=== PATIENT | female | born 1960 | race Caucasian/White ===

== ENCOUNTER 2023-08-29 08:24 | Outpatient (AMB) | payer MEDICARE, SELFPAY ==
--- NOTE | 2023-08-29 08:26 | A.OFFVIS_ITS ---
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 [place] arthritis, chronic pain syndrome, failed back syndrome, fibromyalgia, anxiety and depression presents today for initial evaluation of acute on chronic low back pain. Denies any recent trauma, injury or falls. Back pain is axial and also radiates into her right buttock and into right posterior thigh and left anterior thigh with intermittent numbness and tingling in her bilateral lower extremities. Patient also presents with moderate midline tenderness in her lower thoracic spine. Denies any bladder or bowel dysfunction or saddle anesthesia. Patient underwent injections in the past, including hip injections at [facility] and [facility] with no pain relief. Her pain increases with prolonged walking, sitting, standing, changing positions , bending activities, lifting, or climbing stairs and cold weather changes. Pain affects her daily activities, functioning, sleep, social activities, mood and quality of life. 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 She is has tried multiple OTC medications and topical applications and currently takes Tramadol prescribed by her PCP but has noted that Percocet in the past has been the most helpful. Patient was referred to Physical Therapy but was unable to proceed due to high out of pocket copays as well as significant low back pain limiting her participation in home exercise program as well. Location Lower back radiates down bilateral legs Duration Chronic back pain, worsening since 07/11/23 Characteristics of symptom or complaint Aching, burning, numbness, heavy, heaviness, radiating, sore, stabbing Aggravating or associated factors lumbar ROM, weather, walking (3 min), standing (3-5 min), sitting (20 min) Relieving factors Heat, Tylenol, NSAIDs, topical cream, lidocaine patch, Tramadol, pregabalin Treatment PT- years ago, injections- did not help, Percocet was most helpful [facility] Medical History (Updated 08/29/23 @ 21:48 by ARSENIO Ghosh) Fibromyalgia Hypertension Sleep disturbance Major depression Hypercholesterolemia Herpes Failed back syndrome of lumbar spine Degeneration of lumbar intervertebral disc Chronic pain Anxiety Surgical History (Updated 08/29/23 @ 08:52 by Shantel Guerrero) History of lumbar fusion History of cholecystectomy Hx of fusion of cervical spine Social History Alcohol intake: current Alcohol intake frequency: holidays/special occasions only Patient Tobacco Use Status: Former Tobacco user Review of Systems Const All systems reviewed & are unremarkable except as noted in HPI and below Physical Exam Vital Signs: Last Vital Signs Pulse 80 08/29/23 08:32 BP 159/68 H 08/29/23 08:32 Pulse Ox 99 08/29/23 08:32 Oxygen Delivery Method Room Air 08/29/23 08:32 BMI result Body Mass Index 33.3 General: Appears afebrile. Alert and oriented. Mood and affect appropriate. Follows and participates in conversation appropriately. Respiratory effort is unlabored. No cough. Able to transition from sit to stand unassisted. Ambulates with bilaterally normal heel strike and toe off. Back/Spine/Pelvis Other: Limited lumbar ROM due to pain, worse with extension and facet loading bilaterally. Mildly antalgic gait, no limping. Demonstrates 5/5 strength of quadriceps bilaterally as well as flexion/dorsiflexion of bilateral feet against resistance. 2+ pedal pulses bilaterally. Supine straight leg rise with dorsiflexion negative bilaterally. Diminished patellar and achilles reflexes bilaterally. Garrison?s and Stinchfield tests are negative bilaterally. Piriformis test is negative. No groin pain with I/E hip rotations. Valsalva maneuver negative. Cervical Spine: cervical ROM normal, Cervical spine scars present, No Cervical spine tenderness and No step off deformity Thoracic/Lumbar Spine: thoracic and lumbar spine normal to inspection, Thoracic/lumbar spine scar(s), Lasegue's sign negative, straight leg raise negative bilaterally, pain with thoraco-lumbar ROM, paraspinal muscle tenderness, thoraco-lumbar ROM limited, thoracic spinal tenderness (Moderate pain with palpation over lower thoracic area) and lumbar spinal tenderness at L4 and at L5 Pelvis: no buttock tenderness Sacroiliac joints: bilaterally nontender Results Reviewed Results Reviewed: No imaging is available for review today. Assessment & Plan Assessment & Plan (1) Failed back syndrome: Code(s): M96.1 - Postlaminectomy syndrome, not elsewhere classified (2) Degeneration of lumbar intervertebral disc: Code(s): M51.36 - Other intervertebral disc degeneration, lumbar region (3) Midline back pain: Code(s): M54.89 - Other dorsalgia (4) Chronic pain syndrome: Code(s): G89.4 - Chronic pain syndrome (5) Fibromyalgia: Code(s): M79.7 - Fibromyalgia Plan Lumbar and thoracic spine imaging to assess degree of degenerative changes, any subluxation, listhesis, compression fractures or pars defects. Patient has moderate midline tenderness in lower thoracic spine. Denies history of osteoporosis or recent trauma/falls. Will request previous MRI reports [place] [facility] Continue muscle relaxant, Tylenol, NSAIDs prn, topical applications, heat therap y and Tramadol prescribed by her PCP. Patient reports Percocet was most effective in the past. Discussed interventional treatments for radicular symptoms and failed back syndrome, including therapeutic injections, neuromodulation with SCS or ITDD pain pump trial vs implants, PNS trial and RFA procedure. Informational pamphlets provided to patient. All questions and concerns have been answered and patient agreed with the plan. Follow up for xray results and sooner as needed. Orders: Orders XR thoracic spine 3V Today G89.4 - Chronic pain syndrome, M51.36 - Other intervertebral disc degeneration, lumbar region, M54.89 - Other dorsalgia, M96.1 - Postlaminectomy syndrome, not elsewhere classified XR lumbar spine 4V min Today G89.4 - Chronic pain syndrome, M51.36 - Other intervertebral disc degeneration, lumbar region, M54.89 - Other dorsalgia, M96.1 - Postlaminectomy syndrome, not elsewhere classified Medications: New pregabalin 75 mg PO BID 15 days 30 caps 0RF pain G89.4 - Chronic pain syndrome, M51.36 - Other intervertebral disc degeneration, lumbar region, M54.89 - Other dorsalgia, M96.1 - Postlaminectomy syndrome, not elsewhere classified Coding Level of Care Code New Pt Level 4 (81188) Diagnoses Failed back syndrome M96.1 Degeneration of lumbar intervertebral disc M51.36 Midline back pain M54.89 Chronic pain syndrome G89.4 Fibromyalgia M79.7
[2023-08-29 08:32] VITALS: BP 159/68; PULSE 80; O2SAT 99; BMI 33.3
== END 2023-08-29 09:09 | disposition home or self-care (01) ==
PROVIDERS: PCP Nurse Practitioner Family; Referring Provider Nurse Practitioner Family; Visit Provider Nurse Practitioner Family
DX: M96.1 Postlaminectomy syndrome, not elsewhere classified (principal); M51.36 Other intervertebral disc degeneration, lumbar region; M54.89 Other dorsalgia; G89.4 Chronic pain syndrome; M79.7 Fibromyalgia
CPT/HCPCS: 99204

== ENCOUNTER → 2023-08-29 08:24 | Outpatient (BNVA) | payer MEDICARE, SELFPAY | PROVIDERS: PCP Nurse Practitioner Family; Referring Provider Nurse Practitioner Family; Visit Provider Nurse Practitioner Family | DX: M51.36 Other intervertebral disc degeneration, lumbar region (principal); M96.1 Postlaminectomy syndrome, not elsewhere classified; M54.89 Other dorsalgia; G89.4 Chronic pain syndrome; M79.7 Fibromyalgia | CPT/HCPCS: 99202 ==

== ENCOUNTER 2023-09-05 08:25 | Outpatient (AMB) | payer MEDICARE, SELFPAY ==
--- NOTE | 2023-09-05 08:26 | MHC.OFFVIS ---
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 She continues to endorse low back pain with any movements, worse with bending and avoids extending it backwards due to significant exacerbation of pain. Patient also reports ongoing radicular symptoms in her right leg and occasionally into her left leg with heaviness, numbness and tingling. Reports mild increase in pregabalin has been beneficial for her pain and well tolerated. Denies any recent cough, cold, infection, fever, any significant changes in her medical history, medications or recent hospitalizations. PRIOR: Patient is a 63 years old female with prior history of multiple cervical and lumbar surgeries x4 (cervical and lumbar fusions, removal of bone spurs in lower spine, last surgery in 2017, [facility] Dr. Gaston), arthritis, chronic pain syndrome, failed back syndrome, fibromyalgia, anxiety and depression presents today for initial evaluation of acute on chronic low back pain. Denies any recent trauma, injury or falls. Back pain is axial and also radiates into her right buttock and into right posterior thigh and left anterior thigh with intermittent numbness and tingling in her bilateral lower extremities. Patient also presents with moderate midline tenderness in her lower thoracic spine. Denies any bladder or bowel dysfunction or saddle anesthesia. Patient underwent injections in the past, including hip injections at [facility] and [facility] with no pain relief. Her pain increases with prolonged walking, sitting, standing, changing positions, bending activities, lifting, or climbing stairs and cold weather changes. Pain affects her daily activities, functioning, sleep, social activities, mood and quality of life. 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 She is has tried multiple OTC medications and topical applications and currently takes Tramadol prescribed by her PCP but has noted that Percocet in the past has been the most helpful. Patient was referred to Physical Therapy but was unable to proceed due to high out of pocket copays as well as significant low back pain limiting her participation in home exercise program as well. Location Lower back radiates down bilateral legs Duration Chronic back pain, worsening since 07/11/23 Characteristics of symptom or complaint Aching, burning, numbness, heavy, heaviness, radiating, sore, stabbing Aggravating or associated factors lumbar ROM, weather, walking (3 min), standing (3-5 min), sitting (20 min) Relieving factors Heat, Tylenol, NSAIDs, topical cream, lidocaine patch, Tramadol, pregabalin Treatment PT- years ago, injections- did not help, Percocet was most helpful [facility] Medical History (Updated 09/05/23 @ 08:44 by ARSENIO Ghosh) Fibromyalgia Hypertension Sleep disturbance Major depression Hypercholesterolemia Herpes Failed back syndrome of lumbar spine Degeneration of lumbar intervertebral disc Chronic pain Anxiety Surgical History History of lumbar fusion History of cholecystectomy Hx of fusion of cervical spine Social History Alcohol intake: current Alcohol intake frequency: holidays/special occasions only Patient Tobacco Use Status: Former Tobacco user Review of Systems Const All systems reviewed & are unremarkable except as noted in HPI and below Physical Exam Vital Signs: Last Vital Signs Pulse 81 09/05/23 08:30 BP 143/68 H 09/05/23 08:30 Pulse Ox 99 09/05/23 08:30 Oxygen Delivery Method Room Air 09/05/23 08:30 BMI result Body Mass Index 33.3 General: Appears afebrile. Alert and oriented. Mood and affect appropriate. Follows and participates in conversation appropriately. Respiratory effort is unlabored. No cough. Able to transition from sit to stand unassisted. Ambulates with bilaterally normal heel strike and toe off. Back/Spine/Pelvis Other: Limited lumbar ROM due to pain, worse with extension and facet loading bilaterally as well as forward flexion and bending. Antalgic gait, no limping. Demonstrates 5/5 strength of quadriceps bilaterally as well as flexion/dorsiflexion of bilateral feet against resistance. 2+ pedal pulses bilaterally. Diminished patellar and achilles reflexes bilaterally. Garrison?s and Stinchfield tests are negative bilaterally. No groin pain with I/E hip rotations. Valsalva maneuver negative. Cervical Spine: cervical ROM normal, cervical muscular tenderness, Cervical spine scars present, No Cervical spine tenderness and No step off deformity Thoracic/Lumbar Spine: thoracic and lumbar spine normal to inspection, Thoracic/lumbar spine scar(s), Lasegue's sign positive on the right and diffuse, pain with thoraco-lumbar ROM, paraspinal muscle tenderness, thoraco-lumbar ROM limited, thoracic spinal tenderness (Moderate pain with palpation over lower thoracic area), lumbar spinal tenderness (L3-S1) and straight leg raise positive right at 50 degrees Pelvis: buttock tenderness Sacroiliac joints: bilaterally tender to palpation Results Reviewed Results Reviewed: Assessment & Plan Assessment & Plan (1) Failed back syndrome: Code(s): M96.1 - Postlaminectomy syndrome, not elsewhere classified (2) Degeneration of lumbar intervertebral disc: Code(s): M51.36 - Other intervertebral disc degeneration, lumbar region (3) Chronic pain syndrome: Code(s): G89.4 - Chronic pain syndrome (4) Anterolisthesis of lumbar spine: Code(s): M43.16 - Spondylolisthesis, lumbar region (5) Lumbar radiculopathy: Code(s): M54.16 - Radiculopathy, lumbar region Plan Lumbar and thoracic spine reports were discussed with patient. Copy of report sent to patient's PCP with recommendation for potential carotid and abdominal US to rule out calcifications in these areas. Will proceed with lumbar spine MRI to assess for neural integrity and compression and follow up on previous xray findings, including potential DISH syndrome. Patient requests MRI to be completed at [facility] as she does all her lab and imaging testing there, which is also closer to her home. She is aware to bring MRI disc with imaging so we can upload it into our EMR via radiology department. Continue muscle relaxant, Tylenol, NSAIDs prn, topical applications, heat therapy, pregabalin and Tramadol prescribed by her PCP. Reviewed interventional treatments for radicular symptoms and failed back syndrome, including therapeutic injections, neuromodulation with SCS or ITDD pain pump trial vs implants, PNS trial and RFA procedure. Patient reports epidural steroid injections were ineffective in the past. All questions and concerns have been answered and patient agreed with the plan. Follow up for MRI results and sooner as needed. Orders: Orders MR lumbar spine wo/w con Today M43.16 - Spondylolisthesis, lumbar region, M51.36 - Other intervertebral disc degeneration, lumbar region, M54.16 - Radiculopathy, lumbar region, M96.1 - Postlaminectomy syndrome, not elsewhere classified Coding Level of Care Code Est Pt Level 4 (61286) Diagnoses Failed back syndrome M96.1 Degeneration of lumbar intervertebral disc M51.36 Chronic pain syndrome G89.4 Anterolisthesis of lumbar spine M43.16 Lumbar radiculopathy M54.16
[2023-09-05 08:30] VITALS: BP 143/68; PULSE 81; O2SAT 99; BMI 33.3
== END 2023-09-05 08:54 | disposition home or self-care (01) ==
PROVIDERS: PCP Nurse Practitioner Family; Visit Provider Nurse Practitioner Family
DX: M96.1 Postlaminectomy syndrome, not elsewhere classified (principal); M51.36 Other intervertebral disc degeneration, lumbar region; G89.4 Chronic pain syndrome; M43.16 Spondylolisthesis, lumbar region; M54.16 Radiculopathy, lumbar region
CPT/HCPCS: 99214

== ENCOUNTER → 2023-09-05 08:25 | Outpatient (BNVA) | payer MEDICARE, SELFPAY | PROVIDERS: PCP Nurse Practitioner Family; Visit Provider Nurse Practitioner Family | DX: M96.1 Postlaminectomy syndrome, not elsewhere classified (principal); M51.36 Other intervertebral disc degeneration, lumbar region; M43.16 Spondylolisthesis, lumbar region; M54.16 Radiculopathy, lumbar region; G89.4 Chronic pain syndrome | CPT/HCPCS: 99212 ==

== ENCOUNTER 2023-09-19 08:35 | Outpatient (AMB) | payer MEDICARE, SELFPAY ==
--- NOTE | 2023-09-19 08:36 | A.OFFVIS_ITS ---
Intake Vital Signs 3 09/19/23 08:42 Height 5 ft 3 in Weight 185 lb BMI 32.8 BP 149/70 H Blood Pressure Location Rt brachial Position Sitting Pulse 85 Pulse Source Pulse Oximeter Pulse Oximetry (%) 96 Oxygen Delivery Method Room Air Intake Visit Reasons: MRI FOLLOW UP Intake Note: Pain today 5/10 Flight Operations Inspector Required: No Accompanied by: Self / Same As Patient Allergies gabapentin Allergy (Unknown, Verified 09/19/23 08:42) Blurry Vision tioconazole [From Monistat 1 (tioconazole)] Allergy (Unknown, Verified 09/19/23 08:42) Swelling HPI HPI Comments 2 History of Present Illness0 Details Patient presents today to discuss recent lumbar spine MRI results which she completed at [facility] on 09/13/23. Patient reports progressively worsening lower back pain with bilateral radiculopathy. She reports her walking, standing and sitting is limited and her sleep is very fragmented due to back and bilateral lateral hip. Patient reports I toss and turn all night due to pain. Reports radiation of her pain into her right anterior thigh and leg with heaviness and occasional right leg giving away. She also has to manually lift her right leg due to heaviness. She reports numbness in her left leg anterior and laterally. Her pain is rated at 5/10 with sitting for 5-7 min, after which she has to get up and adjust her position which she has been doing most of today's visit. Her pain intensified to 9-10/10 with walking or standing for 2-5 min. She continues to take tramadol, pregabalin, muscle relaxants, NSAIDs and heating pad with partial relief. Her daily functioning, mobility and sleep are significantly limited due to pain. Denies any fever, abdominal or groin pain, bladder or bowel dysfunction or saddle anesthesia. Patient reports she is having Carotid arteries US on 09/20/23 and pending PA for abdominal US to follow up on atherosclerotic calcification. She declined back injections but would like to undergo Neurosurgical evaluation and bilateral therapeutic greater trochanteric bursa injections as next steps. PRIOR: Patient presents today to discuss recent thoracic and lumbar spine xray results. She continues to endorse low back pain with any movements, worse with bending and avoids extending it backwards due to significant exacerbation of pain. Patient also reports ongoing radicular symptoms in her right leg and occasionally into her left leg with heaviness, numbness and tingling. Reports mild increase in pregabalin has been beneficial for her pain and well tolerated. Denies any recent cough, cold, infection, fever, any significant changes in her medical history, medications or recent hospitalizations. PRIOR: Patient is a 63 years old female with prior history of multiple cervical and lumbar surgeries x4 (cervical and lumbar fusions, removal of bone spurs in lower spine, last surgery in 2017, [facility] [place] Gaston), arthritis, chronic pain syndrome, failed back syndrome, fibromyalgia, anxiety and depression presents today for initial evaluation of acute on chronic low back pain. Denies any recent trauma, injury or falls. Back pain is axial and also radiates into her right buttock and into right posterior thigh and left anterior thigh with intermittent numbness and tingling in her bilateral lower extremities. Patient also presents with moderate midline tenderness in her lower thoracic spine. Denies any bladder or bowel dysfunction or saddle anesthesia. Patient underwent injections in the past, including hip injections at [facility] and [facility] with no pain relief. Her pain increases with prolonged walking, sitting, standing, changing positions, bending activities, lifting, or climbing stairs and cold weather changes. Pain affects her daily activities, functioning, sleep, social activities, mood and quality of life. 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 She is has tried multiple OTC medications and topical applications and currently takes Tramadol prescribed by her PCP but has noted that Percocet in the past has been the most helpful. Patient was referred to Physical Therapy but was unable to proceed due to high out of pocket copays as well as significant low back pain limiting her participation in home exercise program as well. Location Lower back radiates down bilateral legs Duration Chronic back pain, worsening since 07/11/23 Characteristics of symptom or complaint Aching, burning, numbness, heavy, heaviness, radiating, sore, stabbing Aggravating or associated factors lumbar ROM, weather, walking (3 min), standing (3-5 min), sitting (20 min) Relieving factors Heat, Tylenol, NSAIDs, topical cream, lidocaine patch, Tramadol, pregabalin Treatment PT- years ago, injections- did not help, Percocet was most helpful [facility] Medical History Fibromyalgia Hypertension Sleep disturbance Major depression Hypercholesterolemia Herpes Failed back syndrome of lumbar spine Degeneration of lumbar intervertebral disc Chronic pain Anxiety Surgical History History of lumbar fusion History of cholecystectomy Hx of fusion of cervical spine Social History Alcohol intake: current Alcohol intake frequency: holidays/special occasions only Patient Tobacco Use Status: Former Tobacco user Review of Systems Const All systems reviewed & are unremarkable except as noted in HPI and below Physical Exam Vital Signs: Last Vital Signs Pulse 85 09/19/23 08:42 BP 149/70 H 09/19/23 08:42 Pulse Ox 96 09/19/23 08:42 Oxygen Delivery Method Room Air 09/19/23 08:42 BMI result Body Mass Index 32.8 General: Appears afebrile. Alert and oriented. Mood and affect appropriate. Follows and participates in conversation appropriately. Respiratory effort is unlabored. No cough. Able to transition from sit to stand unassisted. Ambulates with bilaterally normal heel strike and toe off, reports unsteadiness on the right. Back/Spine/Pelvis Other: Limited lumbar ROM due to pain, worse with extension and facet loading bilaterally as well as forward flexion and bending. Antalgic gait, no limping. Demonstrates 5/5 left and 4/5 right strength of quadriceps bilaterally as well as flexion/dorsiflexion of bilateral feet against resistance. 2+ pedal pulses bilaterally. Diminished patellar and achilles reflexes bilaterally. Mild sensation loss right lower extremity anteriorly and decreased sensation left anterior thigh. Garrison?s and Stinchfield tests reproduce lateral hip pain. No groin pain with I/E hip rotations. Moderate TTP to bilateral GTB areas. Valsalva maneuver negative. Cervical Spine: cervical ROM normal, cervical muscular tenderness, Cervical spine scars present, No Cervical spine tenderness and No step off deformity Thoracic/Lumbar Spine: thoracic and lumbar spine normal to inspection, Thoracic/lumbar spine scar(s), Lasegue's sign positive on the right and diffuse, pain with thoraco-lumbar ROM, paraspinal muscle tenderness, thoraco-lumbar ROM limited, thoracic spinal tenderness (Moderate pain with palpation over lower thoracic area), lumbar spinal tenderness (L3-S1) and straight leg raise positive right at 50 degrees Pelvis: buttock tenderness Sacroiliac joints: bilaterally tender to palpation Results Reviewed Results Reviewed: Lumbar spine MRI at [facility] 09/16/23 Assessment & Plan Assessment & Plan (1) Greater trochanteric bursitis of both hips: Code(s): M70.61 - Trochanteric bursitis, right hip; M70.62 - Trochanteric bursitis, left hip (2) Lumbar radiculopathy: Code(s): M54.16 - Radiculopathy, lumbar region (3) Anterolisthesis of lumbar spine: Code(s): M43.16 - Spondylolisthesis, lumbar region (4) Chronic pain syndrome: Code(s): G89.4 - Chronic pain syndrome (5) Degeneration of lumbar intervertebral disc: Code(s): M51.36 - Other intervertebral disc degeneration, lumbar region (6) Failed back syndrome: Code(s): M96.1 - Postlaminectomy syndrome, not elsewhere classified (7) Lumbar spinal stenosis: Code(s): M48.061 - Spinal stenosis, lumbar region without neurogenic claudication Plan Referral to our [facility] for surgical evaluation of lumbar spinal stenosis with spondylolisthesis. Lumbar spine results reviewed with patient today. Schedule Bilateral Therapeutic GTB steroid injections with local and US guidance. Expectations, risks and benefits were reviewed. Patient is aware she will be contacted to schedule this procedure. Patient is aware to call if pain worsens or if she develops any red flag symptoms to seek emergency care. Patient denies any cauda equina syndrome symptoms at this time. All questions were answered and the patient is in agreement of plan. Follow-up after injections/Neurosurgical eval and sooner as needed. Orders: Referrals 2 Neurosurgery Referral M43.16 - Spondylolisthesis, lumbar region, M48.061 - Spinal stenosis, lumbar region without neurogenic claudication Coding Level of Care Code Est Pt Level 4 (29722) Diagnoses Greater trochanteric bursitis of both hips M70.61; M70.62 Lumbar radiculopathy M54.16 Anterolisthesis of lumbar spine M43.16 Chronic pain syndrome G89.4 Degeneration of lumbar intervertebral disc M51.36 Failed back syndrome M96.1 Lumbar spinal stenosis M48.061
[2023-09-19 08:42] VITALS: BP 149/70; PULSE 85; O2SAT 96; BMI 32.8
== END 2023-09-19 09:00 | disposition home or self-care (01) ==
PROVIDERS: PCP Nurse Practitioner Family; Visit Provider Nurse Practitioner Family
DX: M70.61 Trochanteric bursitis, right hip (principal); M70.62 Trochanteric bursitis, left hip; M54.16 Radiculopathy, lumbar region; M43.16 Spondylolisthesis, lumbar region
CPT/HCPCS: 99214

== ENCOUNTER → 2023-09-19 08:35 | Outpatient (BNVA) | payer MEDICARE, SELFPAY | PROVIDERS: PCP Nurse Practitioner Family; Visit Provider Nurse Practitioner Family | DX: M48.061 Spinal stenosis, lumbar region without neurogenic claudication (principal); M43.16 Spondylolisthesis, lumbar region; M70.61 Trochanteric bursitis, right hip; M70.62 Trochanteric bursitis, left hip; M54.16 Radiculopathy, lumbar region; M51.36 Other intervertebral disc degeneration, lumbar region; G89.4 Chronic pain syndrome; M96.1 Postlaminectomy syndrome, not elsewhere classified | CPT/HCPCS: 99212 ==

== ENCOUNTER 2023-10-04 08:44 | Outpatient (REF) | payer MEDICARE, SELFPAY ==
--- NOTE | ~2023-10-04 | XR_ITS ---
EXAMINATION: XR LUMBOSACRAL SPINE WITH OBLIQUES CLINICAL INFORMATION: Spinal stenosis, lumbar, without neurogenic claudication. COMPARISON: None available. TECHNIQUE: Standing AP and lateral views with flexion and extension views for a total of 4 views. FINDINGS: Postsurgical changes with orthopedic hardware including pedicle screws and connecting rods from L4 through S1 with interbody devices also noted at these disc levels. Hardware intact without hardware fracture or surrounding lucency. There is grade 1 anterolisthesis of L3 on L4 with degenerative disc changes also present manifest by endplate osteophytes and disc space narrowing. There is additional multilevel degenerative disc disease manifested by endplate osteophytes and varying degrees of disc space narrowing throughout the visualized dorsal spine and remaining lumbar spine from T12-L1 through L3-L4. No fracture. Arterial calcification noted. No abnormal translation with flexion and extension. XR/XR lumbar spine 4V min IMPRESSION: 1. Postsurgical changes of lumbar spine without evidence of hardware failure. 2. Multilevel spondylosis of the lumbar spine.
== END 2023-10-04 08:45 | disposition home or self-care (01) ==
LOC: HO.HOSX 08:44
PROVIDERS: PCP Nurse Practitioner Family; Visit Provider Physician Assistant
DX: M48.061 Spinal stenosis, lumbar region without neurogenic claudication (principal)
CPT/HCPCS: 72110; 99202

== ENCOUNTER 2023-10-04 08:44 | Outpatient (AMB) | payer MEDICARE, SELFPAY ==
--- NOTE | 2023-10-04 08:52 | HO.SPINEOV ---
Intake Visit Reasons: spinal stenosis,lumbar region Intake Note: Ms. Xiao is here today c/o right sided low back pain that radiates down the right leg. Tomography Technologist Required: No Allergies gabapentin Allergy (Unknown, Verified 10/04/23 08:53) Blurry Vision tioconazole [From Monistat 1 (tioconazole)] Allergy (Unknown, Verified 09/19/23 08:42) Swelling Assessment & Plan Assessment & Plan (1) Lumbar spinal stenosis: Code(s): M48.061 - Spinal stenosis, lumbar region without neurogenic claudication Category: Medical Plan Dear Jade Thank you for referring Mrs Xiao to our office today. She has a 63-year-old female who has a history of previous ALIF L4-s1 done by Dr Gatson many years ago, as well as a simple lumbar decompression done by Dr. Kapoor more than 20 years ago, who presents for evaluation of a progressively worsening midline low back pain which has been radiating down her right leg. She specifically states that it goes down the back of her right leg but she was somewhat limited on the details she could provide me. Overall she just says that her walking is poor and she has to sit down in order to continue walking. Simple things like taking a walk in the grocery store, and other short distances give her quite a significant amount of pain in her back and her right leg. She has been through multiple pain management center to try to manage this, and has undergone physical therapy and too many cortisone injections that she can not even recall how many. She has no interest in doing any more of those. She takes tramadol and Lyrica and meloxicam to help with the pain. It helps but only to a certain degree. She is here today for evaluation of an MRI showing severe stenosis at L3-4 with adjacent segment disease as well as moderate to severe stenosis at L2-3. PMH: History of hypertension, high cholesterol, anxiety, GERD, to previous anterior cervical diskectomies and fusions, anterior lumbar interbody fusion as above, cholecystectomy, . She denies any history of heart attacks, strokes, liver disease, major abdominal surgeries, cancer, bleeding disorders, blood clots, kidney issues etc.. She did state that she was told she has calcifications in her aorta that were seen on an x-ray. Despite a strong history of smoking, she tells me that she has no shortness of breath and has never been diagnosed with emphysema. Social hx: She quit smoking a few weeks back, has been weaning herself off a nicotine patch since that time. Otherwise she has been a lifelong smoker. She used to smoke up to 2-3 packs a day. Medications: Tramadol, Lyrica, lisinopril, vitamin-D, vitamin-B, biotin, baby aspirin, meloxicam, tizanidine, omeprazole Allergies: Gabapentin gives her blurry vision Physical exam: Awake alert oriented no acute distress, she has full strength of bilateral upper extremities, some mild weakness of her iliopsoas but distal lower extremity strength in quadriceps and tibialis/gastrocnemius are full strength. She has no sensory loss. She has normal reflexes in the upper extremities, 3+ patellar reflexes, no clonus in the ankles, no Diego's sign. She has 2 anterior cervical diskectomy scars in the front of her neck which are well healed. These are bilateral. She has abdomen obese, nondistended nontender, she has a midline scar from her anterior lumbar interbody fusion which is well healed as well as a scar in her lower abdomen which is well healed. Both of her feet seem to have no discolorations, she had 2+ pulses on the right and 1+ pulses on the left. Imaging review: Lumbar MRI done at [facility] shows evidence of previous fusion L4-S1 with solid fusion segments, she has a grade 1 spondylolisthesis at L3-4 with severe stenosis at this level with bilateral neural foraminal stenosis, she has moderate to severe stenosis secondary to disc bulging at L2-3. Impression: 63-year-old female with a history of 2 previous lumbar surgeries, 1 was a simple decompression done many many years ago, the other 1 was an L4-S1 anterior lumbar interbody fusion done at [facility] by Dr. Gaston maybe 10 years ago or so, presents now with adjacent segment disease at L3-4 with spondylolisthesis grade 1 and severe stenosis, with moderate to severe stenosis at L2-3 as well. This is typically a situation where Dr. Jett would extend the fusion up to L3-4, possibly L2-3. I did review with her both the oblique lumbar interbody fusion and trans Kambin approaches which are the 2 most common he would typically use. Before I commit her to any surgery, I would like to know a little bit more about the L3-4 segment and how unstable it is so I am going to send her for flexion-extension x-rays. Also, would like to get a look at her bone quality with the x-rays. I suspect given her history of smoking, being postmenopausal that she is going to have osteopenia if not osteoporosis. Typically we would lean in the direction of an oblique lumbar interbody fusion in this circumstance because the size of the cage would get better support. Once I have a chance to review everything with Dr. Jett I will give the patient a call back and review pertinent risks, benefits etc... Thank you for allowing us to care for your patient. The total time spent with this visit with this patient was 45 minutes reviewing history, physical exam, lumbar imaging review, and implementation of treatment plan or further diagnostic testing Esequiel Jett MD,PhD [facility] Orders: Orders XR lumbar spine 4V min Today M48.061 - Spinal stenosis, lumbar region without neurogenic claudication Coding Level of Care Code New Pt Level 4 (35717) Diagnoses Lumbar spinal stenosis M48.061
== END 2023-10-04 11:33 | disposition home or self-care (01) ==
PROVIDERS: PCP Nurse Practitioner Family; Referring Provider Nurse Practitioner Family; Visit Provider Physician Assistant
DX: M48.061 Spinal stenosis, lumbar region without neurogenic claudication (principal)
CPT/HCPCS: 99204

== ENCOUNTER 2023-10-11 09:28 | Outpatient (AMB) | payer MEDICARE, SELFPAY ==
--- NOTE | 2023-10-11 09:34 | MHC.OFFVIS ---
Vital Signs 10/11/23 09:36 Height 5 ft 3 in Weight 198 lb BMI 35.1 BP 138/62 Blood Pressure Location Lt brachial Position Sitting Respiration 14 Pulse 88 Pulse Source Pulse Oximeter Pulse Oximetry (%) 95 Oxygen Delivery Method Room Air Intake Visit Reasons: BILATERAL GTB INJECTIONS UNDER ULTRASOUND Allergies gabapentin Allergy (Unknown, Verified 10/11/23 09:37) Blurry Vision tioconazole [From Monistat 1 (tioconazole)] Allergy (Unknown, Verified 10/11/23 09:37) Swelling Medication List - Last Reconciled 10/11/23 by Sharlene Tidwell LPN amlodipine 2.5 mg PO DAILY atorvastatin 10 mg PO DAILY lisinopril-hydrochlorothiazide 20-12.5 mg 1 tab PO DAILY meloxicam 7.5 mg PO DAILY omeprazole 40 mg PO DAILY pregabalin 75 mg PO BID 15 days tizanidine 2 mg PO BID tramadol ER mg PO venlafaxine 37.5 mg PO DAILY HPI HPI BILATERAL GTB INJECTIONS UNDER ULTRASOUND: Details: 63-year-old female who presents today to the office for a bilateral GTB injection, US guided. Denies any recent cough, cold, infection, fever or other significant changes in medical history since last office visit. She reports the worsening of the back pain. She has difficulty standing and walking. She has to sit or rest after walking a short distance. She had back fusion surgery three times in the past, and the last was done in 2016. She will undergo her fourth?fusion surgery in December 2023. [facility] Medical History Fibromyalgia Hypertension Sleep disturbance Major depression Hypercholesterolemia Herpes Failed back syndrome of lumbar spine Degeneration of lumbar intervertebral disc Chronic pain Anxiety Surgical History History of lumbar fusion History of cholecystectomy Hx of fusion of cervical spine Social History Alcohol intake: current Alcohol intake frequency: holidays/special occasions only Patient Tobacco Use Status: Former Tobacco user Physical Exam Vital Signs: Last Vital Signs Pulse 88 10/11/23 09:36 Resp 14 10/11/23 09:36 BP 138/62 10/11/23 09:36 Pulse Ox 95 10/11/23 09:36 Oxygen Delivery Method Room Air 10/11/23 09:36 BMI result Body Mass Index 35.1 On exam today: Appears afebrile. Alert and oriented. Mood and affect appropriate. Follows and participates in conversation appropriately. Respiratory effort is unlabored. Able to transition from sit to stand unassisted. Ambulates with bilaterally normal heel strike and toe off. Able to stand and walk on toes and heels. Office Procedures Joint Injection/Drain Joint Injection/Drain Details: Greater Trochanteric Bursa Injection, bilateral, ultrasound guided. After informed written consent was obtained, the patient was placed in the lateral position. Pre-procedure oxygen saturation, heart rate, and blood pressure were recorded. The skin was prepped with Chloroprep, and draped in a sterile fashion. With the use of ultrasound, the greater trochanter was identified. A 21-gauge 80 mm needle was then advanced toward the trochanteric bursa under ultrasound visualization. Once in position, and after negative aspiration, 40 mg of Kenalog mixed with 0.5% ropivacaine (3mL total) was injected on each side. There was no evidence of paresthesia throughout needle placement. The needle was withdrawn. The patient tolerated the procedure well and there was no evidence of procedural complications. The patient was observed in the procedure room for 20 minutes, vitals were stable, and discharged in stable condition. An ultrasound image of the injection was taken and stored in the permanent record. Coding 06859 - Glenohumeral/Tronchanteric Bursa/Intraarticular (bilateral, ultrasound guided) Procedure code (CPT) selection complete Results Reviewed Results Reviewed: 09/13/2023: MR LUMBAR SPINE W+WO CON Assessment & Plan Assessment & Plan (1) Greater trochanteric bursitis of both hips: Code(s): M70.61 - Trochanteric bursitis, right hip; M70.62 - Trochanteric bursitis, left hip Category: Medical (2) Lumbar spinal stenosis: Code(s): M48.061 - Spinal stenosis, lumbar region without neurogenic claudication Category: Medical Plan I reviewed the patient's MRI report at her request regarding her spinal stenosis and her upcoming surgery in December. I encourage her to follow up with her spine surgeon to address questions regarding the surgery. I agree that her severe spinal stenosis at L3?4 and L2?3 needs to be surgically addressed. If she has residual pain after the surgery, we can address it with other pain management strategies. Patient is status post Greater Trochanteric Bursa Injection, bilateral, ultrasound guided. Patient tolerated procedure well and was discharged home in stable condition with discharge instructions. All questions were answered. Follow-up as needed. Coding Level of Care Code Est Pt Level 3 (49745) Diagnoses Greater trochanteric bursitis of both hips M70.61; M70.62 Lumbar spinal stenosis M48.061 CPT Codes Coding - Joint 7: 58622 - Glenohumeral/Tronchanteric Bursa/Intraarticular ([id number])
[2023-10-11 09:36] VITALS: BP 138/62; PULSE 88; RESP 14; O2SAT 95; BMI 35.1
== END 2023-10-11 10:07 | disposition home or self-care (01) ==
PROVIDERS: PCP Nurse Practitioner Family; Visit Provider Internal Medicine
DX: M70.61 Trochanteric bursitis, right hip (principal); M70.62 Trochanteric bursitis, left hip; M48.061 Spinal stenosis, lumbar region without neurogenic claudication
CPT/HCPCS: 20611

== ENCOUNTER → 2023-10-11 09:28 | Outpatient (BNVA) | payer MEDICARE, SELFPAY | PROVIDERS: PCP Nurse Practitioner Family; Visit Provider Internal Medicine | DX: M70.61 Trochanteric bursitis, right hip (principal); M70.62 Trochanteric bursitis, left hip; M48.061 Spinal stenosis, lumbar region without neurogenic claudication | CPT/HCPCS: 20611; J2795; J3301 ==

== ENCOUNTER 2023-12-20 08:47 | Outpatient (REF) | payer MEDICARE, SELFPAY ==
[2023-12-27 00:34] LABS: Cotinine <2 ng/mL; Nicotine <2 ng/mL
== END 2023-12-20 08:48 | disposition home or self-care (01) ==
LOC: HO.10HDL 08:47
PROVIDERS: Visit Provider Physician Assistant
DX: Z72.0 Tobacco use (principal)
CPT/HCPCS: 36415; 80323

== ENCOUNTER → 2024-01-21 05:49 | Outpatient (BNV) | payer MEDICARE, SELFPAY | PROVIDERS: PCP Nurse Practitioner Family; Visit Provider Neurological Surgery | DX: M51.36 Other intervertebral disc degeneration, lumbar region (principal); M43.16 Spondylolisthesis, lumbar region | CPT/HCPCS: 20930; 22558; 22612; 22840; 22853; 99024; 99499 ==

== ENCOUNTER 2024-01-21 05:52 | Inpatient (IN) | payer MEDICARE, SELFPAY ==
[2024-01-13 12:09] VITALS: BP 132/62; PULSE 83; RESP 16; O2SAT 96; BMI 36.6
--- NOTE | 2024-01-13 12:28 | HO.ANESPROP2 ---
HPI - Anesthesia Eval Consult details Narrative: 63yo F for L3-4 Oblique Lumbar Interbody Fusion, 01/21/24 Medically optimized per [facility] preop clinic No recent illness No CP/SOB with minimal activity r/t back pain GERD: ppi mostly controls PMFSH Active Problems Active Problems: All Active Problems Tobacco abuse (Acute) Lumbar spinal stenosis (Acute) Greater trochanteric bursitis of both hips (Acute) Lumbar radiculopathy (Acute) Anterolisthesis of lumbar spine (Acute) Midline back pain (Acute) Chronic pain syndrome (Acute) Failed back syndrome (Acute) Fibromyalgia (Acute) Degeneration of lumbar intervertebral disc (Acute) Past Medical History Medical History Arthritis GERD (gastroesophageal reflux disease) Fibromyalgia Hypertension Sleep disturbance Major depression Hypercholesterolemia Herpes Failed back syndrome of lumbar spine Degeneration of lumbar intervertebral disc Chronic pain Anxiety Family History Family history of problems with anesthesia: No Surgical History Surgical History History of esophagogastroduodenoscopy (EGD) H/O colonoscopy Hx of bilateral cataract extraction History of back surgery Hx of section History of lumbar fusion History of cholecystectomy Hx of fusion of cervical spine History of Problems with Anesthesia: No Social History Social History Household Members: Spouse Housing: House Are you a primary medicare contact specialist to a significant other at home: No Do you presently have visiting nurse or other home services: No Alcohol intake: current Alcohol intake frequency: holidays/special occasions only Patient Tobacco Use Status: Former Tobacco user Tobacco use type: Cigarette Years Smoked: 35 Meds Allergies Allergy/AdvReac Type Severity Reaction Status Date / Time tioconazole Allergy Severe localized Verified 01/13/24 12:03 [From Monistat 1 swelling (tioconazole)] gabapentin Allergy Intermediate Blurry Verified 01/10/24 11:28 Vision Home Medications ?Medication ?Instructions ?Recorded ?Confirmed ?Last Taken ?Type amlodipine 2.5 mg tablet 2.5 mg PO QAM 08/29/23 01/13/24 01/20/24 History lisinopril 20 1 tab PO QAM 08/29/23 01/13/24 01/20/24 History mg-hydrochlorothiazide 12.5 mg tablet meloxicam 7.5 mg tablet 7.5 mg PO QAM 08/29/23 01/13/24 01/13/24 History omeprazole 40 mg capsule,delayed 40 mg PO QAM 08/29/23 01/13/24 01/21/24 05:00 History release tizanidine 2 mg tablet 2 mg PO BEDTIME 08/29/23 01/13/24 01/20/24 History tramadol 100 mg tablet,extended 100 mg PO BID 08/29/23 01/13/24 01/21/24 05:00 History release 24 hr venlafaxine 37.5 mg tablet 37.5 mg PO QAM 08/29/23 01/13/24 01/20/24 History aspirin 81 mg tablet,delayed 81 mg PO QAM 01/10/24 01/13/24 01/13/24 History release venlafaxine 150 mg 150 mg PO QAM 01/13/24 01/13/24 01/20/24 History capsule,extended release 24 hr aspirin 81 mg tablet,delayed 81 mg PO DAILY 01/21/24 01/21/24 Unknown History release atorvastatin 40 mg tablet 40 mg PO DAILY 01/21/24 01/21/24 Unknown History Exam Height,Weight and Vital Signs: Height 5 ft 2.99 in Weight 93.7 kg Last Vital Signs Pulse 83 01/13/24 12:09 Resp 16 01/13/24 12:09 BP 132/62 01/13/24 12:09 Pulse Ox 96 01/13/24 12:09 O2 Del Method Room Air 01/13/24 12:09 Pertinent Lab Results Pertinent Lab Results: CBC and BMP from outside facility 01/2024 WNL Lab Results 01/13/24 Range/Units 12:53 Blood Type O Positive Antibody Screen NEGATIVE Narrative Narrative: EKG 01/2024 NSR Airway TM Dist: >3cm Neck ROM: Limited (s/p cspine surgeries x 2) Heart: RRR Lungs: CTAB Assessment and Plan Assessment Anesthesia Assessment: Anesthesia Plan Discussed and PAT Visit Final Anesthetic Review Family History of Problems with Anesthesia: No History of Problems with Anesthesia: No
[2024-01-21] VITALS (20 sets, daily range): BP systolic 110–170; BP diastolic 52–98; PULSE 81–103; RESP 14–20; TEMP 36–36.6; O2SAT 94–99; BMI 36.5
[2024-01-21] MEDS: methocarbamoL 750 MG TABLET PO ×3 (06:00→23:06)
[2024-01-21] MEDS: Lactated Ringers 1,000 ML 100 ML IVCONT (06:23)
--- NOTE | 2024-01-21 07:25 | P.CONAN_ITS ---
FORMERLY [facility] Active Problems Active Problems: All Active Problems Tobacco abuse (Acute) Lumbar spinal stenosis (Acute) Greater trochanteric bursitis of both hips (Acute) Lumbar radiculopathy (Acute) Anterolisthesis of lumbar spine (Acute) Midline back pain (Acute) Chronic pain syndrome (Acute) Failed back syndrome (Acute) Fibromyalgia (Acute) Degeneration of lumbar intervertebral disc (Acute) Past Medical History Medical History Arthritis GERD (gastroesophageal reflux disease) Fibromyalgia Hypertension Sleep disturbance Major depression Hypercholesterolemia Herpes Failed back syndrome of lumbar spine Degeneration of lumbar intervertebral disc Chronic pain Anxiety Functional capacity: independent ambulation Patient : No Family History Family history of problems with anesthesia: No Surgical History Surgical History History of esophagogastroduodenoscopy (EGD) H/O colonoscopy Hx of bilateral cataract extraction History of back surgery Hx of section History of lumbar fusion History of cholecystectomy Hx of fusion of cervical spine History of Problems with Anesthesia: No Social History Social History Are you a primary respiratory care faculty to a significant other at home: No Do you presently have visiting nurse or other home services: No Alcohol intake: current Alcohol intake frequency: holidays/special occasions only Patient Tobacco Use Status: Former Tobacco user Tobacco use type: Cigarette Years Smoked: 35 Use of substances other than those prescribed or required for medical reasons: No Have you been hit, kicked, punched, or otherwise hurt by someone within the past year? If so, by whom?: No Are you DNR?: No Advance Directives Information Provided: Yes (as above noted) Advance Directives on File: No Recently lost weight without trying: No Eating poorly because of decreased appetite: No Nutrition Risks: No Nutritional Risk Poor oral hygiene: No (crowns) Meds Allergies Allergy/AdvReac Type Severity Reaction Status Date / Time tioconazole Allergy Severe localized Verified 01/13/24 12:03 [From Monistat 1 swelling (tioconazole)] gabapentin Allergy Intermediate Blurry Verified 01/10/24 11:28 Vision Active Medications: Current Medications Lactated Ringer's (Lr) 1,000 mls @ 100 mls/hr IVCONT .Q10H MURALI Last Admin: 01/21/24 06:23 Dose: 100 mls/hr Home Medications ?Medication ?Instructions ?Recorded ?Confirmed ?Last Taken ?Type amlodipine 2.5 mg tablet 2.5 mg PO QAM 08/29/23 01/13/24 01/20/24 History atorvastatin 10 mg tablet 10 mg PO QAM 08/29/23 01/13/24 01/20/24 History lisinopril 20 1 tab PO QAM 08/29/23 01/13/24 01/20/24 History mg-hydrochlorothiazide 12.5 mg tablet meloxicam 7.5 mg tablet 7.5 mg PO QAM 08/29/23 01/13/24 01/13/24 History omeprazole 40 mg capsule,delayed 40 mg PO QAM 08/29/23 01/13/24 01/21/24 05:00 History release tizanidine 2 mg tablet 2 mg PO BEDTIME 08/29/23 01/13/24 01/20/24 History tramadol 100 mg tablet,extended 100 mg PO BID 08/29/23 01/13/24 01/21/24 05:00 History release 24 hr venlafaxine 37.5 mg tablet 37.5 mg PO QAM 08/29/23 01/13/24 01/20/24 History aspirin 81 mg tablet,delayed 81 mg PO QAM 01/10/24 01/13/24 01/13/24 History release venlafaxine 150 mg 150 mg PO QAM 01/13/24 01/13/24 01/20/24 History capsule,extended release 24 hr Exam Height,Weight and Vital Signs: Height 5 ft 2.99 in Weight 93.7 kg Last Vital Signs Temp 97.5 F 01/21/24 05:54 Pulse 81 01/21/24 05:54 Resp 20 01/21/24 05:54 BP 110/58 L 01/21/24 05:54 Pulse Ox 96 01/21/24 05:54 O2 Del Method Room Air 01/21/24 05:54 Pertinent Lab Results Pertinent Lab Results: Laboratory Tests 01/13/24 12:53 Blood Type O Positive Antibody Screen NEGATIVE Airway Mallampati Class: II TM Dist: >3cm Neck ROM: Full Heart: RRR Lungs: CTA Assessment and Plan Assessment Anesthesia Assessment: Anesthesia Plan Discussed and Smoking Cess. Discussed Final Anesthetic Review Family History of Problems with Anesthesia: No History of Problems with Anesthesia: No NPO: Yes ASA Class: II Final Preanesthetic Review: Meds/Allgs Chart Reviewed, Consent Obtained/Reviewed and Anes Risks/Benef Reviewed Patient Risk: Intermediate Procedure Risk: Intermediate Anesthetic Plan Anesthetic Plan: GA Disposition: Standard PACU
--- NOTE | 2024-01-21 07:29 | MHC.SHP ---
Pre-Procedural Eval Section A - 24 Hr Update-Section A only Date of Service: 01/21/24 The patient is an INPATIENT: No Changes since office visit: No Cold of Flu in the past 2 weeks, No New Medical Problems, No Changes in Medication and No Patient answered all questions The patient has been examined within 24 hours of the surgical procedure. The History & Physical has been completed within 30 days and I have reviewed it.: No Section B - Complete if H&P > 30 days Chief Complaint: Spinal stenosis, lumbar region without neurogenic Allergies: Allergies Allergy/AdvReac Type Severity Reaction Status Date / Time tioconazole Allergy Severe localized Verified 01/13/24 12:03 [From Monistat 1 swelling (tioconazole)] gabapentin Allergy Intermediate Blurry Verified 01/10/24 11:28 Vision Review of Systems Sugical H&P ROS: Negative: Constitution, Cardiovascular, Respiratory, Neurological, Psychiatric, Hem-Onc, Allergic/Immunologic, Gastrointestinal, Genitourinary, Musculoskeletal, Integumentary, Endocrine and Eyes/Ears/Nose/Throat Exam Surgical H&P Exam: Normal: HEENT, Normal: Heart, Normal: Lungs, Normal: Extremities, Normal: Abdomen, Normal: Skin and Normal: Neurological (awake, alert, oriented x 3 ) Plan Diagnosis/Plan: Unchanged L3-4 Oblique lumbar interbody fusion with revision of posterior instrumentation Time Spent With Patient Time: Total time managing care of this patient today __5__ minutes.
--- NOTE | 2024-01-21 11:06 | P.OP_ITS ---
Operative Note Operative Note Date of Service: 01/21/24 Narrative: Preop Diagnosis: 1.) Adjacent degenerative disc disease with L3-4 spondylolisthesis 2.) Back pain and neurogenic claudication Procedure: 1) L3-4 discectomy, arthrodesis and implantation cage through an anterolateral, retroperitoneal approach 2) removal L4-S1 instrumentation and reinsertion of L3-L4 posterior instrumented fusion 3) allograft Consent Informed Consent was obtained for this operation. I have explained the nature, purpose and benefits of the operation. I have discussed the risks and benefit of the operation including possible complications or adverse events with patient/family. Alternative(s) were discussed with the patient with their relative benefits and risks as well as the consequences of not accepting the operation were included in obtaining consent. Surgeon: SMOOTH GARZA MD, PHD Procedure Assisted By: lynette Medina Description of Procedure This patient had a previous L4-S1 fusion done in another institution. She presents back pain and neurogenic claudication symptoms. An MRI and x-rays shows adjacent degenerative disc disease with a spondylolisthesis and spinal stenosis. The patient was offered an oblique lumbar interbody fusion L3-4 and revision of the posterior instrumentation. The procedure complications were explained. The patient was consented. The patient was brought to the operating room and endotracheally intubated. The patient was turned in a lateral position with the left side up. Prep and drape was done followed by timeout. A small incision was made in the left lower abdominal quadrant. The muscle fascia was opened after which the 3 muscle layer was split to enter the retroperitoneal space. Dilators were docked in the anterior one third of the L3-4 disc space followed by a retractor. The retractor was opened. The L3-4 disc space was expo sed. An annulotomy was done after which an elevator Parham was used to release the disc material from its endplates and to perforate the contralateral side. A partial discectomy was done. An 8 and 10 mm height trial implant was inserted. The discectomy was completed. The endplates were prepared. An 12 x 50 mm with 6 degree lordosis CTL [employer] cage filled with allograft was inserted into the disc space under fluoroscopic guidance. This resulted in reduction of the spondylolisthesis. The retractor was removed. Hemostasis was done. The incision was closed in 2 layers. Steri-Strips used to approximate incision. An OpSite with Tegaderm was used to cover the incision. This marked first part of the procedure. The patient was turned prone on the Arben spine table. 2C arms were installed for fluoroscopy. Prep and drape was done followed by a second timeout. Two paramedian incisions were made over previous placed instrumentation. The dissection was carried out to expose the instrumentation. The locking caps were removed followed by removal of the rods. The for pedicle screws her removed and a K-wire was placed in the pedicle of L4. A 7.5 x 40 mm Astura pedicle screw was inserted over the K-wire into the L4 pedicles. Then. A pediguard tap was used to create a transpedicular trajectory into the vertebral body of L3. A K wire was placed. A specially designed instrument was advanced over the K wire to decorticate the posterolateral gutter in preparation for the posterolateral fusion. A pedicle screw with a diameter of 6.5 x 40 mm was advanced over the K wire in the bilateral L3 pedicles. Pedicle screws were connected with 45 mm rayo bilaterally and locked down with locking caps. The extension towers were removed. The posterolateral gutter was filled with allograft to complete the posterolateral L3-4 fusion Hemostasis was done and the incision was closed in 2 layers. Steri-Strips were used to approximate the incision. An OpSite were taken and was used to cover the incision. All sponge and needle counts were correct. Patient was extubated and transferred in stable is to recovery room. Anesthesia: General Estimated Blood Loss (ml): 200 mL Duration of Surgery: 3 hours Complications: None Postoperative Plan: Admit to inpatient for observation
[2024-01-21] MEDS: HYDROmorphone HCl 0.5 MG/0.5 ML SYRINGE IVPUSH (11:40)
[2024-01-21] MEDS: fentaNYL citrate/PF 100 MCG/2 ML VIAL 25 MCG IVPUSH ×4 (11:55→12:20)
[2024-01-21] MEDS: oxyCODONE HCl Immed Release 5 MG TABLET 10 MG PO (13:54)
[2024-01-21] MEDS: 0.9 % Sodium Chloride 1,000 ML 75 ML IVCONT (14:00)
[2024-01-21] MEDS: ceFAZolin Sodium/Dextrose,Iso 2 GM/50 ML PIGGYBACK IV ×2 (14:15→20:34)
--- NOTE | 2024-01-21 14:30 | HE.PHANOTE ---
med rec reviewed, effexor 37.5 mg is immediate release, verified with [facility]
[2024-01-21] MEDS: HYDROmorphone HCl 1 MG/ML SYRINGE IVPUSH ×2 (15:05→20:57)
[2024-01-21] MEDS: Ketorolac Tromethamine 15 MG/ML VIAL IVPUSH ×2 (16:12→22:52)
[2024-01-21] MEDS: Acetaminophen 1,000 MG/100 ML PIGGYBACK 400 MG IV ×2 (16:17→22:50)
[2024-01-21] MEDS: Docusate Sodium 100 MG CAPSULE PO (20:57)
[2024-01-21] MEDS: Pregabalin 75 MG CAPSULE PO (20:57)
[2024-01-22] MEDS: ceFAZolin Sodium/Dextrose,Iso 2 GM/50 ML PIGGYBACK IV (03:01)
[2024-01-22] MEDS: Acetaminophen 1,000 MG/100 ML PIGGYBACK 400 MG IV (03:02)
[2024-01-22] MEDS: 0.9 % Sodium Chloride 1,000 ML 75 ML IVCONT (03:04)
[2024-01-22] MEDS: Ketorolac Tromethamine 15 MG/ML VIAL IVPUSH ×2 (03:35→09:15)
[2024-01-22] MEDS: HYDROmorphone HCl 1 MG/ML SYRINGE IVPUSH (03:36)
[2024-01-22 03:46] VITALS: BP 169/74; PULSE 103; RESP 20; TEMP 36.3; O2SAT 93
[2024-01-22] MEDS: ondansetron HCL 4 MG/2 ML VIAL IVPUSH (03:50)
[2024-01-22] MEDS: Omeprazole 40 MG CAPSULE.DR PO (05:47)
[2024-01-22] MEDS: oxyCODONE HCl Immed Release 5 MG TABLET 10 MG PO ×2 (06:33→10:16)
--- NOTE | 2024-01-22 07:08 | P.DS_ITS ---
DS: Providers Provider Date of Service: 01/22/24 Date of admission: 01/21/24 05:52 Primary care physician: Nicolasa Augustin NP DS: Summary Time Attestation Discharge Coordination Time (in mins): 30 Quality: Safe Use of Opioids Does Pt have an Active Cancer Diagnosis on the Problem List?: No Quality: Stroke Does the patient have a stroke diagnosis?: No Physical Exam Vital Signs: Vital Signs: Last Vital Signs Temp 97.3 F 01/22/24 03:46 Pulse 103 H 01/22/24 03:46 Resp 20 01/22/24 03:46 BP 169/74 H 01/22/24 03:46 Pulse Ox 93 01/22/24 03:46 O2 Del Method Room Air 01/22/24 03:46 O2 Flow Rate 2 01/21/24 13:20 BMI result Body Mass Index 36.5 Discharge Plan Discharge Anticipated Discharge Date/Time: 01/22/24 07:08 Patient Disposition: Home, Self-Care Discharge Diagnosis: s/p L3-4 OLIF Referrals: Nicolasa Augustin NP [Primary Care Provider] - 1 Week Discharge Medications: New oxycodone 5 mg tablet 5 mg PO Q6H PRN (Reason: severe pain) Qty: 30 0RF Rx Instructions: Partial Fill upon patient request. methocarbamol 750 mg tablet 750 mg PO BID Qty: 30 0RF Continued venlafaxine 150 mg capsule,extended release 24hr 150 mg PO QAM atorvastatin 40 mg tablet 40 mg PO DAILY omeprazole 40 mg capsule,delayed release(DR/EC) 40 mg PO QAM amlodipine 2.5 mg tablet 2.5 mg PO QAM venlafaxine 37.5 mg tablet 37.5 mg PO QAM tizanidine 2 mg tablet 2 mg PO BEDTIME tramadol 100 mg tablet extended release 24 hr 100 mg PO BID meloxicam 7.5 mg tablet 7.5 mg PO QAM lisinopril-hydrochlorothiazide 20-12.5 mg tablet 1 tab PO QAM pregabalin 75 mg capsule 75 mg PO BID 15 Days Qty: 30 0RF Held aspirin 81 mg tablet,delayed release (DR/EC) 81 mg PO QAM Hold Instructions: Resume on 01/25/24. aspirin 81 mg tablet,delayed release (DR/EC) 81 mg PO DAILY Hold Instructions: Resume on 01/25/24. Discharge Orders: Discharge Order (Routine); Ordered 01/22/24 Ordered By: Miah Burroughs Diet: Advance to usual diet Activity on Discharge: As tolerated Stand Alone Forms: Patient Portal Discharge page Print Language: [place] Activity Restrictions/Additional Instructions: After your spinal surgery we ask you to observe the following restrictions/guidelines: Activity: With lumbar fusion surgery it is normal to have days in the first couple of weeks where you have increased leg pain. This usually lasts 1-2 days and self resolves with the continuation of medication. Attempt to stay mobile and c ontinue activity as tolerated. It is normal to feel some discomfort as you increase your activity, but that will improve with time. We ask you avoid heavy lifting or activities that cause pain. As a general rule, 8lbs is a safe limit for lifting right after surgery. Walk as much as you feel comfortable but not to exhaustion. You will feel extra tired the first few days after surgery. Stay well hydrated. It is OK to walk up and down stairs You may return to driving when you are off narcotics (such as vicodin, oxycodone, dilaudid, etc), and you are back to normal functional capacity. If you have any concerns please check with office before driving. Return to work is specific to each patient and each surgery, so please speak with your doctor/PA at first follow up. Please bring paperwork such as FMLA at that time if you need it filled out. Medications: It is recommended that you take Tylenol 1,000mg every 8 hours for the first few weeks post-operatively. We will give you a short supply of narcotics after surgery (usually one weeks worth). ??Please use this for breakthrough pain that is refractory to the Tylenol. If you need more please call the office but do not use more than prescribed. You will need to give our office 48 hours notice if you need narcotics refilled and we do not fill narcotics on weekends or evenings. If you are on a narcotic, it is a good idea to take a stool softener such as colace or senna to avoid constipation If you take blood thinner such as aspirin, Plavix, Coumadin, Effient, Eliquis etc for conditions such as Afib, DVT, Pulmonary embolus, coronary disease, stents etc please speak with your surgeon about specific details as to when you can resume these medications. If you take them already, you can resume NSAIDs on post op day 1 (eg: Motrin, Naproxen, etc). Follow up: Please call the office, , after surgery to arrange a 3 week follow up for wound check. Wound Care: You may remove your dressing on the first day after surgery. ?You may ?leave open to air. Please do not remove the steri strips underneath. they will fall off on their own in one week. IT IS NORMAL FOR THE WOUND TO OOZE OR BE BLOODY FOR A FEW DAYS AFTER SURGERY. ?IF THIS HAPPENS JUST PLACE NEW DRESSING OVER IT TO AVOID STAINING CLOTHES. You may shower on post op day # 1 We ask that you do not let the water soak the wound. If it does get wet, just towel dry lightly. Please do not scrub your incision or place any type of chemical/ointment on the wound. No tub baths, pools or jacuzzis for one month. If you have any leaking or redness from your wound, or fevers, please call office Care Plan Goals: Returned to normal activity as tolerated. Health Concerns: None. Plan of Treatment: Follow-up in clinic in 2-3 weeks. Assessment: POD: 1 Procedure: L3-4 MERY Conde was seen this morning sitting upright in bed on 3-S. She reports she is up, walking around, is otherwise doing well. She feels his symptoms are much better than pre-operatively. He still reports mild-moderate low back pain, with good relief with current pain medication regimen. She is voiding well, tolerating diet. Afebrile, vital signs stable. Full strength 5/5 LE's. Back dressings have some staining without signs of hematoma. No active sanguineous drainage. Area is dry. Plan: Patient meets criteria to be medically discharged home. She was seen at bedside with Dr. Jett. Miah Jett MD,PhD [facility]
--- NOTE | 2024-01-22 07:14 | HO.NEUROPN_ITS ---
Neurosurgery Operative Note Date of Service: 01/22/24 Narrative: POD: 1 Procedure: L3-4 MERY Conde was seen this morning sitting upright in bed on 3-S. She reports she is up, walking around, is otherwise doing well. She feels his symptoms are much better than pre-operatively. She still reports mild-moderate low back pain, with good relief with current pain medication regimen. She is having trouble with a pulled muscle in her left posterior thigh, which is unrelated to the surgery. She is voiding well, tolerating diet. Afebrile, vital signs stable. Full strength 5/5 LE's. Back dressings have some staining without signs of hematoma. No active sanguineous drainage. Area is dry. Plan: Patient meets criteria to be medically discharged home. She was seen at bedside with Dr. Jett. I sent in a prescription for oxycodone and methocarbamol for the patient. Miah Jett MD,PhD [facility]
[2024-01-22 08:00] VITALS: BP 128/66; PULSE 95; RESP 18; TEMP 36.4; O2SAT 95
--- NOTE | 2024-01-22 08:26 | MHC.CM.PN ---
Pt has been medically cleared for DC, she will go home via private transport, plan is: self care.
[2024-01-22] MEDS: Docusate Sodium 100 MG CAPSULE PO (08:32)
[2024-01-22] MEDS: Venlafaxine HCl ER 150 MG CAP.ER.24H PO (08:32)
[2024-01-22 08:33] VITALS: BP 128/66
[2024-01-22] MEDS: Pregabalin 75 MG CAPSULE PO (08:33)
[2024-01-22] MEDS: amLODIPine Besylate 2.5 MG TABLET PO (08:33)
[2024-01-22] MEDS: Atorvastatin Calcium 40 MG TABLET PO (08:33)
[2024-01-22] MEDS: lisinopriL 20 MG, hydroCHLOROthiazide 12.5 MG PO (08:33)
[2024-01-22] MEDS: Venlafaxine HCL 25 MG TABLET 37.5 MG PO (08:34)
[2024-01-22] MEDS: methocarbamoL 750 MG TABLET PO (09:15)
--- NOTE | 2024-01-22 10:06 | HO.POSTANES ---
Post Anesthesia Evaluation Post Anesthesia Evaluation Date of Service: 01/21/24 Vital Signs: Vital Signs Temp Pulse Resp BP Pulse Ox O2 Del Method 01/22/24 08:33 128/66 01/22/24 08:33 128/66 01/22/24 08:00 97.5 F 95 18 128/66 95 Room Air 01/22/24 03:46 97.3 F 103 H 20 169/74 H 93 Room Air 01/21/24 23:48 97.3 F 101 H 18 142/71 H 96 Room Air Anesthesia: General Endotracheal-GETA Mental Status: Awake Pain Control: Satisfactory Nausea/Vomiting: None Hydration: Adequate Anesthesia-Related Issues: No Anes. Related Issues
== END 2024-01-22 11:12 | disposition home or self-care (01) | DRG 460 ==
LOC: HO.SSSA 12:10 → HO.S3 12:54
PROVIDERS: Neurological Surgery; Admitting Provider Physician Assistant; PCP Nurse Practitioner Family; Visit Provider Physician Assistant
PROC: 0SG00A0 Fusion of Lumbar Vertebral Joint with Interbody Fusion Device, Anterior Approach, Anterior Column, Open Approach (ICD-10-PCS; CPT 22612; principal; 2024-01-21 07:30)
DX: M48.061 Spinal stenosis, lumbar region without neurogenic claudication (principal); K21.9 Gastro-esophageal reflux disease without esophagitis; Z87.891 Personal history of nicotine dependence; Z79.82 Long term (current) use of aspirin; Z79.899 Other long term (current) drug therapy
CPT/HCPCS: 22612; 22558; 22840; 22853; 20930; 22850; 86850; 86900; 86901; 97162; 97530; C1713; C1889; C9290; J0131; J0665; J0690; J1100; J1170; J1596; J1885; J2250; J2405; J2704; J3010; L8699

== ENCOUNTER 2024-02-11 13:34 | Outpatient (AMB) | payer MEDICARE, SELFPAY ==
--- NOTE | 2024-02-11 12:36 | A.SPINEOV_ITS ---
Intake Visit Reasons: 1st post op Intake Note: Ms. Xiao is here today for her 1st post op visit. Chief Hospital Administrator Required: No Allergies tioconazole [From Monistat 1 (tioconazole)] Allergy (Severe, Verified 01/13/24 12:03) localized swelling gabapentin Allergy (Intermediate, Verified 01/10/24 11:28) Blurry Vision Assessment & Plan Assessment & Plan (1) Lumbar spinal stenosis: Code(s): M48.061 - Spinal stenosis, lumbar region without neurogenic claudication Category: Medical Plan Procdure: L3-4 OLIF with removal of previous instrumentation at L4-S1. Amaya is a pleasant 63-year-old female who comes in today in follow-up after having an L3-4 OLIF completed. During this surgery she also had removal of the old instrumentation from L4-S1. To recap she initially presented to our clinic for evaluation due to progressively worsening midline low back pain which has be en radiating down her right leg. Unfortunately, she reports that her pain has largely persisted since the surgery. She has been having a great deal of trouble ambulating around her home but has been doing so without assistive devices. No new neurological deficits. The patient is able to ambulate well and rises from a seated position without difficulty. Her posterior incision site and anterior/lateral incision site is still healing. It is closed with no serosanguineous drainage. I would like to have Amaya follow up again in 6 weeks with a set of x-rays. We extensively discussed that she may still have pain as a result of postoperative inflammation. She is still quite functional and is not any worse than she was before, so I am hopeful that she will be making progress soon when her inflammation goes down. Miah Jett MD,PhD [facility] Orders: Orders XR lumbar spine 4V min Today M48.061 - Spinal stenosis, lumbar region without neurogenic claudication Medications: Refilled oxycodone-acetaminophen 5-325 mg (Percocet) Partial Fill upon patient request. Do not exceed 4,000mg of Tylenol / Acetaminophen per day. 1 tab PO Q6-8H PRN 21 tabs 0RF severe pain (scale score 7-10) Coding Level of Care Code Global (12464) Diagnoses Lumbar spinal stenosis M48.061
== END 2024-02-11 13:55 | disposition home or self-care (01) ==
PROVIDERS: PCP Nurse Practitioner Family; Visit Provider Physician Assistant
DX: M48.061 Spinal stenosis, lumbar region without neurogenic claudication (principal)
CPT/HCPCS: 99024

== ENCOUNTER 2024-02-11 13:34 | Outpatient (REF) | payer MEDICARE, SELFPAY | END 2024-02-11 13:35 | disposition home or self-care (01) | LOC: HO.HOSX 13:34 | PROVIDERS: PCP Nurse Practitioner Family; Visit Provider Physician Assistant | DX: M48.061 Spinal stenosis, lumbar region without neurogenic claudication (principal); Z98.890 Other specified postprocedural states | CPT/HCPCS: 99212 ==

== ENCOUNTER 2024-02-20 11:02 | Outpatient (AMB) | payer MEDICARE, SELFPAY ==
--- NOTE | 2024-02-20 11:19 | A.SPINEOV_ITS ---
Intake Visit Reasons: muscle spasm both legs Intake Note: Ms. Xiao is here today c/o muscle spasm both legs. 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 This is secondary to her stopping the Percocet she was taking. She has about 1 month out from surgery and recently filled a prescription for tramadol. She reportedly gets 60 tramadol per month for baseline pain control. This is confirmed by her [facility]. She states that her pain has been ?so bad that I can not sleep and she is requesting subsequent pain medication prescriptions. On examination the patient walks with an obviously antalgic gait but is unclear which side she is favoring. Her incision site are closed and well healing with no signs of swelling or erythema. No drainage. I believe it is reasonable to provide Amaya with a partial refill of her previous oxycodone prescription so she is able to get through the next couple of weeks which should be the end of her postoperative inflammation phase. I also sent in a prescription for Robaxin as a muscle relaxant. I am sending her for a set of lumbar x-rays to ensure that there is no signs of instability or hardware failure. I informed her that if everything looks good we will follow up with her routinely and will not reach out to her directly. She understands and agrees to this. Miah Jett MD,PhD [facility] Orders: Orders XR lumbar spine 4V min Today M48.061 - Spinal stenosis, lumbar region without neurogenic claudication Medications: New oxycodone-acetaminophen 5-325 mg Partial Fill upon patient request. 1 tab PO Q8H PRN 20 tabs 0RF severe pain (scale score 7-10) oxycodone-acetaminophen 5-325 mg Partial Fill upon patient request. 1 tab PO Q8H PRN 20 tabs 0RF severe pain (scale score 7-10) Coding Level of Care Code Global (16729) Diagnoses Lumbar spinal stenosis M48.061
== END 2024-02-20 11:45 | disposition home or self-care (01) ==
PROVIDERS: PCP Nurse Practitioner Family; Visit Provider Physician Assistant
DX: M48.061 Spinal stenosis, lumbar region without neurogenic claudication (principal)
CPT/HCPCS: 99024

== ENCOUNTER 2024-02-20 11:02 | Outpatient (REF) | payer MEDICARE, SELFPAY ==
--- NOTE | ~2024-02-20 | XR_ITS ---
EXAMINATION: XR LUMBAR SPINE CLINICAL INFORMATION: Spinal stenosis lumbar region without neurogenic claudication. COMPARISON: XR lumbar spine 10/04/2023. TECHNIQUE: 4 views of the lumbar spine. FINDINGS: Levoscoliosis of the lumbar spine with straightening of the normal lumbar lordosis. Atherosclerotic aortoiliac calcifications. Posterior fixation with disc spacer spanning L3-L4. Surgical clips in the pelvis. Grade 1 anterolisthesis of L3 on L4 with flexion and extension. Advanced multilevel lumbar spondylosis with multilevel loss of disc space height in the remainder of the lumbar spine. Superior L4 endplate compression deformity appears to be new since intraoperative images dated 01/21/2024. This is better characterized on CT lumbar spine of 03/03/2024. Please refer to that report for more detailed evaluation. XR/XR lumbar spine 4V min IMPRESSION: 1. Superior L4 endplate compression deformity appears to be new since intraoperative images dated 01/21/2024. This is better characterized on CT lumbar spine of 03/03/2024. Please refer to that report for more detailed evaluation. 2. Posterior fixation with disc spacer spanning L3-L4. Grade 1 anterolisthesis of L3 on L4 with flexion and extension. Electronically signed by: Kaylee Celeste MD 04/15/2024 11:44 AM EST
== END 2024-02-20 11:03 | disposition home or self-care (01) ==
LOC: HO.XRAY 11:02
PROVIDERS: PCP Nurse Practitioner Family; Visit Provider Physician Assistant
DX: M48.061 Spinal stenosis, lumbar region without neurogenic claudication (principal)
CPT/HCPCS: 72110; 99212

== ENCOUNTER 2024-03-03 11:22 | Inpatient (IN) | payer MEDICARE, SELFPAY ==
--- NOTE | ~2024-03-03 | CT_ITS ---
EXAMINATION: CT LUMBAR SPINE WITHOUT CONTRAST CLINICAL INFORMATION: Back pain after surgery COMPARISON: Plain radiographs dated 02/20/2024 TECHNIQUE: Thin section axial imaging with sagittal and coronal reformats are obtained. This CT examination was performed using dose optimization techniques as appropriate, variously including the following: *Automated exposure control *Adjustment of mA and/or kV according to patient size (this includes techniques or standardized protocols for targeted exams where dose is matched to indication/reason for exam; i.e. extremities or head) *Use of iterative reconstruction technique DLP; 539.48 mGy-cm FINDINGS: Surgical hardware, at the L3-4 level with an L3-4 disc interspacer is noted. Hardware is intact. Some streak artifact however is present. At T12-L1 and L1-2 there is extensive spondylitic change with disc space narrowing and moderate annular disc protrusions. These disc protrusions, when coupled with posterior spondylitic change does create mild spinal stenosis and circumferential mass effect on the spinal canal with moderate bilateral foraminal encroachment. At L2-3, there is disc space narrowing and anterior and posterior spurring with a moderate annular disc protrusion causing moderate spinal stenosis and moderate bilateral foraminal narrowing. At L3-4, there is streak artifact from the surgical hardware. There does appear to be moderate spinal stenosis secondary to extensive facet degenerative change, posterior osteophyte formation and annular disc protrusion. No instability noted. Minor retrolisthesis, 3 related to L4 by 4 mm is noted. Superior endplate deformity and evidence of an recent superior endplate compression fracture, new from the intraoperative study of 01/21/2024 is observed. At this particular level, the posterior superior L4 endplate, creates severe spinal stenosis at 5 mm. At L4-5, there is disc space narrowing and degenerative disc disease and disc calcification with a moderate annular disc protrusion and moderate bilateral foraminal encroachment. There is facet degenerative change noted. No definite L5-S1, there is disc desiccation and degeneration creating moderate spinal stenosis with facet degenerative change and moderate bilateral foraminal encroachment. CT/CT lumbar spine wo IV con IMPRESSION: Hardware intact. Multilevel degenerative change noted. At the level of the disc interspace, L3-4 is an L4 superior endplate compression deformity, of uncertain chronicity however, it does appear new from the intraoperative images dated 01/21/2024. Moderate to severe spinal stenosis is noted, at the L3-4 level. Electronically signed by: Bruce Alfaro MD 03/03/2024 03:41 PM EDT RP
--- NOTE | ~2024-03-03 | FL_ITS ---
EXAMINATION: FLUOROSCOPY GUIDANCE FOR NEEDLE PLACEMENT CLINICAL INFORMATION: L3-L4 laminectomy. COMPARISON: CT lumbar spine 03/03/2024. TECHNIQUE: Fluoroscopy and spot films were provided to Dr. Jett in the OR during L3-L4 laminectomy. FINDINGS: Single image demonstrates posterior pedicular hardware at L3-L4 with an interbody device. 2 probes are present at the L3-L4 disc space. FLUOROSCOPY TIME: 11 seconds. DOSE AREA PRODUCT: 2.9424 uGy-m2 (microgray-meter squared). FL/FL guidance in OR IMPRESSION: Fluoroscopy and spot films provided during L3-L4 laminectomy. Electronically signed by: Gamal Lacy MD 03/05/2024 12:13 AM EDT
[2024-03-03 11:30] VITALS: BP 130/73; PULSE 94; RESP 16; TEMP 36.6; O2SAT 96; BMI 36.3
[2024-03-03 11:32] VITALS: BP 130/73; PULSE 94; RESP 14; TEMP 36.6; O2SAT 95
[2024-03-03 11:45] LABS: MANUAL DIFF FLAG NO
[2024-03-03 11:48] LABS: Basophils Percent Auto 0.7 % (0-2); Eosinophils Absolute Auto 0.1 X10*3/uL (0.0-0.4); Eosinophils Percent Auto 2.2 % (0-4); Hematocrit 34.6 % (37.0-47.0); Lymphocytes Absolute Auto 1.4 X10*3/uL (1.2-4.9); Mean Corpuscular HGB Conc 34.7 g/dl (31.0-35.0); Mean Corpuscular Hemoglobin 31.6 pg (27.0-33.0); Mean Corpuscular Volume 91.1 fL (80.0-98.0); Mean Platelet Volume 9.3 fL (9.4-12.3); Monocytes Absolute Auto 0.7 X10*3/uL (0.1-1.2); Monocytes Percent Auto 12.2 % (2-11); Neutrophils Absolute Auto 3.2 x10*3/uL (2.0-8.3); Neutrophils Percent Auto 58.9 % (45-73); Platelet Count 290 X10*3/uL (160-400); Red Cell Distribution Width 13.1 % (11.0-16.0); White Blood Count 5.4 X10*3/uL (4.8-10.8)
[2024-03-03 12:00] LABS: Alanine Aminotransferase 53 U/L (0-31); Albumin Level 4.2 g/dL (3.5-5.0); Alkaline Phosphatase 114 U/L (39-117); Anion Gap 11 (12-20); Aspartate Amino Transferase 40 U/L (5-31); Bilirubin Total 0.4 mg/dL (0.0-1.0); Blood Urea Nitrogen 11 mg/dL (9-16); Calcium 9.3 mg/dL (8.4-10.2); Carbon Dioxide 28 mmol/L (22-29); Chloride 103 mmol/L (96-108); Creatinine Clr Calc Pharmacy 89.1; Estimated Glomerular Filt Rate > 60; Glucose Random 117 mg/dL (60-115); Potassium 3.8 mmol/L (3.3-5.1); Sodium 138 mmol/L (135-145); Total Protein 7.4 g/dL (6.5-8.0)
--- NOTE | 2024-03-03 12:19 | PC.NURSE ---
Neurosurgery team at bedside to consult with patient and discuss care plan and interventions.
--- NOTE | 2024-03-03 12:47 | HO.NEURO.PN ---
Neurosurgery Operative Note Date of Service: 03/03/24 Narrative: Amaya is a pleasant 63 year old female who had a L3-4 oblique lumbar interbody fusion with revision of previous instrumentation at L4-S1 completed completed by our service on 01/20/23. Unfortunately the patient had a subsidence of the CTL cage placed at L3-4 shortly after surgery, which we tried to treat with TLSO bracing. Pre-operatively she reported R foot hypoesthesia and a posterior radiculopathy down the R leg that was waxing / waning in nature. Today she presents to the ED after increasing bilateral leg weakness and pain leaving her unable to ambulate at home. She called the clinic this morning reporting she voided multiple times before making to the bathroom due to severe pain and lack of mobility. Dr. Jett and I saw her in bed in the ED today. She reports that her RLE hypoesthesia has increased from just her right foot to her entire right leg. She feels her bilateral feet have become very weak. She reports severe cramping pain in her bilateral posterior lower extremities. On exam she was sitting upright, A&OX4 but in obvious pain. She is continuously adjusting herself while moving her legs intermittently attempting to find a comfortable position. No Diego's, No clonus. Patient has diffuse hypoestesia to light touch over the right lower extremity. Normal sensation over left lower extremity. Cali-lateral and posterior incision sites appear clean, dry, and well healed. No bandages or steri-strips in place. - Hip flexion 4/5 right 4/5 left - Knee extension 5/5 right 5/5 left - Dorsiflexion 3/5 right 3/5 left - Plantar flex 4/5 right 4/5 left - EHL 3/5 right 2/5 left Reflexes: - Biceps Right - 2+ Left - 2+ - Triceps Right - 2+ Left - 2+ - Patellar Right - 2+ Left - 2+ - Achilles Right - 2+ Left - 2+ - Plantar Right - 2+ Left - 2+ Exam may be limited due to patients disclosed pain. 63 year old female s/p L3-4 oblique lumbar interbody fusion with revision of previous instrumentation at L4-S1 on 01/20/23 presents to the ED today for increasing bilateral leg weakness and pain leaving her unable to ambulate at home. Her incision sites look great. We would like to further evaluate the osseous structures surrounding the cage subsidence to formulate a surgical plan for the patient. We will be ordering a CT scan w/o contrast to evaluate this. We will likely be obtaining an MRI thereafter to evaluate for any nerve impingement. Dr. Jett is tentatively planning to take the patient to the OR on Saturday for L4 corpectomy. Miah Jett MD,PhD [facility]
--- NOTE | 2024-03-03 13:26 | ED.GENADULT ---
HPI - General Adult General Chief complaint: Weakness Stated complaint: BLE WEAKNESS S/P BACK SURGERY 6WK AGO PER EMS Time Seen by Provider: 03/03/24 13:12 History of Present Illness ED Provider: Michelle FLORES narrative: The patient is a 63-year-old female who had surgery on her lower back proximally 6 weeks ago. The patient says that over the last 5 weeks she has had worsening pain in her lower back that is interfering with her ability to ambulate. She has been in contact with her doctor. A few weeks ago she had plain films that showed that the intervertebral piece of hardware that was inserted at the surgery may have caused a small amount of fracture of L4. Her symptoms have been getting worse and she was advised to come to the hospital today. Her primary symptom is pain. She has not had any significant loss of bowel or bladder control. She does not have any real numbness in her lower extremities. She does feel that her legs are weaker. No fever, sweats, chills. No nausea or vomiting. Related Data Home Medications ?Medication ?Instructions ?Recorded ?Confirmed amlodipine 2.5 mg tablet 2.5 mg PO QAM 08/29/23 03/03/24 lisinopril 20 1 tab PO QAM 08/29/23 03/03/24 mg-hydrochlorothiazide 12.5 mg tablet meloxicam 7.5 mg tablet 7.5 mg PO QAM 08/29/23 03/03/24 omeprazole 40 mg capsule,delayed 40 mg PO QAM 08/29/23 03/03/24 release tizanidine 2 mg tablet 4 mg PO BEDTIME 08/29/23 03/03/24 tramadol 100 mg tablet,extended 100 mg PO BID 08/29/23 03/03/24 release 24 hr venlafaxine 37.5 mg tablet 37.5 mg PO QAM 08/29/23 03/03/24 venlafaxine 150 mg 150 mg PO QAM 01/13/24 03/03/24 capsule,extended release 24 hr aspirin 81 mg tablet,delayed 81 mg PO DAILY 01/21/24 03/03/24 release atorvastatin 40 mg tablet 40 mg PO DAILY 01/21/24 03/03/24 Previous Rx's ?Medication ?Instructions ?Recorded pregabalin 75 mg capsule 75 mg PO BID pain 15 days #30 caps 03/21/24 methocarbamol 750 mg tablet 750 mg PO BID MUSCLE SPASMS #30 02/26/24 tabs oxycodone-acetaminophen 5 mg-325 1 tab PO Q8H PRN severe pain 02/26/24 mg tablet (scale score 7-10) #20 tabs Allergies Allergy/AdvReac Type Severity Reaction Status Date / Time tioconazole Allergy Severe localized Verified 03/03/24 11:34 [From Monistat 1 swelling (tioconazole)] gabapentin Allergy Intermediate Blurry Verified 03/03/24 11:34 Vision Review of Systems Review of Systems: Yes all other systems are reviewed and are negative [facility] Past Medical History Medical History Arthritis GERD (gastroesophageal reflux disease) Fibromyalgia Hypertension Sleep disturbance Major depression Hypercholesterolemia Herpes Failed back syndrome of lumbar spine Degeneration of lumbar intervertebral disc Chronic pain Anxiety Surgical History History of esophagogastroduodenoscopy (EGD) H/O colonoscopy Hx of bilateral cataract extraction History of back surgery Hx of section History of lumbar fusion History of cholecystectomy Hx of fusion of cervical spine Social History Social History Household Members: Spouse Housing: House Are you a primary special needs child caregiver to a significant other at home: No Do you presently have visiting nurse or other home services: No Alcohol intake: current Alcohol intake frequency: holidays/special occasions only Patient Tobacco Use Status: Former Tobacco user Tobacco use type: Cigarette Years Smoked: 35 Smoked in Last 30 Days: No Use of substances other than those prescribed or required for medical reasons: No Advance Directives: Yes Advance Directives Information Provided: Yes Advance Directives on File: No Do you have a plan to hurt others: No Plan Patient : No Physical Exam ED Vital Signs: Vital Signs - 24 hr 03/03/24 11:30 03/03/24 11:32 03/03/24 14:51 Temperature 97.8 F 97.8 F 98.2 F Pulse Rate 94 94 82 Respiratory Rate 16 14 16 Blood Pressure 130/73 130/73 122/73 Pulse Oximetry 96 95 96 Oxygen Delivery Method Room Air Room Air Room Air BMI result Body Mass Index 36.3 Const Other: The patient is awake and alert with a normal mental status. She does not appear in overt distress although she seemed somewhat restless and she said this was because she was uncomfortable. HENMT Other: Face is symmetrical. Mucous membranes moist. Eyes Other: Pupils are round equal, conjunctivae clear Neck Other: Moving her neck easily Resp Effort & Inspection: normal respiratory effort Auscultation: clear to auscultation bilaterally Cardio Rate: regular rate Rhythm: regular rhythm Heart sounds: S1 normal heart sound present and S2 normal heart sound present GI Other: Abdomen is soft and nontender Skin Other: Skin is dry and unremarkable Neuro Other: The patient is awake and alert with a normal mental status. Cranial nerves are grossly intact. She has normal strength and sensation in her upper extremities. She is able to move her lower extremities reasonably well. No gross sensory deficits. Toes seemed to go down bilaterally. Very little in the way of reflexes at the knees or the ankles. Extrem Other: No lower extremity edema. No calf swelling or tenderness. No asymmetry. Medications Administered Discontinued Medications Generic Name Dose Route Start Last Admin Trade Name Erich PRN Reason Stop Dose Admin Hydromorphone HCl 1 mg 03/03/24 13:24 03/03/24 13:39 Hydromorphone Hcl 1 Mg/Ml Syringe IM 03/03/24 13:25 1 mg ONCE ONE Administration Protocol Ketorolac Tromethamine 30 mg 03/03/24 13:25 03/03/24 13:39 Ketorolac Tromethamine 30 Mg/Ml Vial IM 03/03/24 13:26 30 mg ONCE ONE Administration Medical Decision Making Medical Decision Making [facility] Narrative: The patient is a 63-year-old woman who was several weeks postoperative from lower back surgery with hardware. She has been having worsening pain and there is impingement and subsidence of the L4 vertebral body. I do not think she has findings suggestive of cauda equina. She has been seen by the neurosurgical team and recommendation is for hospitalization with a probable plan for surgery in the next day or 2. The patient will therefore be admitted to the neurosurgical service. Lab Data 03/03/24 11:42 03/03/24 11:42 Labs: Lab Results 03/03/24 Range/Units 11:42 WBC 5.4 (4.8-10.8) X10*3/uL RBC 3.80 L (4.20-5.50) X10*6/uL Hgb 12.0 (12.0-16.0) g/dl Hct 34.6 L (37.0-47.0) % MCV 91.1 (80.0-98.0) fL MCH 31.6 (27.0-33.0) pg MCHC 34.7 (31.0-35.0) g/dl RDW 13.1 (11.0-16.0) % Plt Count 290 (160-400) X10*3/uL MPV 9.3 L (9.4-12.3) fL Immature Gran % (Auto) 0.0 (0.0-0.4) % Neut % (Auto) 58.9 (45-73) % Lymph % (Auto) 26.0 (20-40) % Trimble % (Auto) 12.2 H (2-11) % Eos % (Auto) 2.2 (0-4) % Baso % (Auto) 0.7 (0-2) % Lymph # (Auto) 1.4 (1.2-4.9) X10*3/uL [place]ble # (Auto) 0.7 (0.1-1.2) X10*3/uL Eos # (Auto) 0.1 (0.0-0.4) X10*3/uL Baso # (Auto) 0.0 (0.0-0.2) X10*3/uL Abs Immat Gran (auto) 0.00 (0.00-0.03) X10*3/uL Absolute Neuts (auto) 3.2 (2.0-8.3) x10*3/uL Absolute Nucleated RBC 0.000 (0.0-0.012) X10*3/uL Nucleated RBC % (auto) 0.0 (0.0-0.2) /100WBC Sodium 138 (135-145) mmol/L Potassium 3.8 (3.3-5.1) mmol/L Chloride 103 (96-108) mmol/L Carbon Dioxide 28 (22-29) mmol/L Anion Gap 11 L (12-20) BUN 11 (9-16) mg/dL Creatinine 0.70 (0.5-1.4) mg/dL Estim Creat Clear Calc 89.1 Estimated GFR > 60 Random Glucose 117 H (60-115) mg/dL Calcium 9.3 (8.4-10.2) mg/dL Total Bilirubin 0.4 (0.0-1.0) mg/dL AST 40 H (5-31) U/L ALT 53 H (0-31) U/L Alkaline Phosphatase 114 (39-117) U/L Total Protein 7.4 (6.5-8.0) g/dL Albumin 4.2 (3.5-5.0) g/dL Discharge Plan Discharge Clinical Impression: Low back pain Patient Disposition: Admitted As Inpatient Interventions: Admission Worksheet (ED) Last Done: 03/03/24 16:07
[2024-03-03] MEDS: HYDROmorphone HCl 1 MG/ML SYRINGE IM (13:39)
[2024-03-03] MEDS: Ketorolac Tromethamine 30 MG/ML VIAL IM (13:39)
[2024-03-03 14:51] VITALS: BP 122/73; PULSE 82; RESP 16; TEMP 36.8; O2SAT 96
--- NOTE | 2024-03-03 16:31 | PHA.MEDREC ---
Pharmacy Consult ? Medication Reconciliation Pharmacy has completed the medication reconciliation. Spoke to patient and confirmed medication list. Patient confirmed she takes tizanidine 4 mg at bedtime and venlafaxine 150 mg + 37.5 mg together in the morning. Last dose was this morning 03/03/24.
[2024-03-03 19:15] VITALS: BP 119/64; PULSE 80; RESP 16; TEMP 36.8; O2SAT 97
[2024-03-03] MEDS: oxyCODONE HCl Immed Release 5 MG TABLET PO (19:23)
[2024-03-03] MEDS: methocarbamoL 750 MG TABLET PO (19:23)
[2024-03-03] MEDS: Acetaminophen 325 MG TABLET 975 MG PO (19:23)
[2024-03-03] MEDS: oxyCODONE HCl Immed Release 5 MG TABLET 10 MG PO (21:45)
[2024-03-03] MEDS: Pregabalin 75 MG CAPSULE PO (21:46)
[2024-03-03] MEDS: Docusate Sodium 100 MG CAPSULE PO (21:46)
[2024-03-03] MEDS: 0.9 % Sodium Chloride 1,000 ML 75 ML IVCONT (23:35)
--- NOTE | 2024-03-03 23:38 | PC.NURSE ---
this rn assumed care of pt, pt a&ox4, respirations even and unlabored. no acute distress noted. vss.
[2024-03-03 23:42] VITALS: BP 128/61; PULSE 83; RESP 16; TEMP 37.1; O2SAT 97
[2024-03-04] VITALS (15 sets, daily range): BP systolic 118–145; BP diastolic 52–67; PULSE 79–95; RESP 12–18; TEMP 36.2–37.2; O2SAT 94–98
--- NOTE | 2024-03-04 00:59 | PC.NURSE ---
per dr. otto hold PO Tylenol at this time due to pt being NPO.
[2024-03-04] MEDS: HYDROmorphone HCl 1 MG/ML SYRINGE IVPUSH ×3 (03:01→10:35)
--- NOTE | 2024-03-04 05:26 | PC.NURSE ---
pt assisted to bedside commode, tolerated well with 1A. pt reporting significant leg pain, aware.
--- NOTE | 2024-03-04 12:35 | MHC.SHP ---
Pre-Procedural Eval Section A - 24 Hr Update-Section A only Date of Service: 03/04/24 Section B - Complete if H&P > 30 days Chief Complaint: BLE WEAKNESS S/P BACK SURGERY 6WK AGO PER EMS Allergies: Allergies Allergy/AdvReac Type Severity Reaction Status Date / Time tioconazole Allergy Severe localized Verified 03/03/24 11:34 [From Monistat 1 swelling (tioconazole)] gabapentin Allergy Intermediate Blurry Verified 03/03/24 11:34 Vision Review of Systems Sugical H&P ROS: Negative: Constitution, Cardiovascular, Respiratory, Neurological, Psychiatric, Hem-Onc, Allergic/Immunologic, Gastrointestinal, Genitourinary, Musculoskeletal, Integumentary, Endocrine and Eyes/Ears/Nose/Throat Exam Surgical H&P Exam: Not Evaluated: HEENT, Not Evaluated: Heart, Not Evaluated: Lungs, Not Evaluated: Extremities, Not Evaluated: Abdomen, Not Evaluated: Skin and Not Evaluated: Neurological Exam Comment: Patient is A&OX4. NAD. Back clean with no evidence of recent trauma. Plan Diagnosis/Plan: Unchanged I have reviewed the history and physical and performed a pertinent physical examination on my patient. No changes have occurred unless specified. Plan remains the same, L3-4 laminotomy Time Spent With Patient Time: Total time managing care of this patient today _15___ minutes.
[2024-03-04] MEDS: Lactated Ringers 1,000 ML 80 ML IVCONT (12:38)
--- NOTE | 2024-03-04 13:19 | PC.NURSE ---
patient belongings list reviewed upon transfer to [facility], patient has clothes, cellphone and tobacco weigher with her. ID/Insur card sent home with spouse, patient stated she did not arrive in shoes.
--- NOTE | 2024-03-04 13:24 | MHC.CM.PN ---
CM ATTEMPTED TO MEET WITH PT WHO WAS IN [facility] CM WILL REVISIT
--- NOTE | 2024-03-04 13:38 | P.CONAN_ITS ---
[facility] Active Problems Active Problems: All Active Problems Low back pain (Acute) Tobacco abuse (Acute) Lumbar spinal stenosis (Acute) Greater trochanteric bursitis of both hips (Acute) Lumbar radiculopathy (Acute) Anterolisthesis of lumbar spine (Acute) Midline back pain (Acute) Chronic pain syndrome (Acute) Failed back syndrome (Acute) Fibromyalgia (Acute) Degeneration of lumbar intervertebral disc (Acute) Past Medical History Medical History Arthritis GERD (gastroesophageal reflux disease) Fibromyalgia Hypertension Sleep disturbance Major depression Hypercholesterolemia Herpes Failed back syndrome of lumbar spine Degeneration of lumbar intervertebral disc Chronic pain Anxiety Family History Family history of problems with anesthesia: No Surgical History Surgical History History of esophagogastroduodenoscopy (EGD) H/O colonoscopy Hx of bilateral cataract extraction History of back surgery Hx of section History of lumbar fusion History of cholecystectomy Hx of fusion of cervical spine History of Problems with Anesthesia: No Social History Social History Household Members: Spouse Housing: House Are you a primary children's zoo caretaker to a significant other at home: No Do you presently have visiting nurse or other home services: No Alcohol intake: current Alcohol intake frequency: a few times a week Patient Tobacco Use Status: Former Tobacco user Tobacco use type: Cigarette Years Smoked: 35 Smoked in Last 30 Days: No Second Hand Smoke Exposure: No Use of substances other than those prescribed or required for medical reasons: No Have you been hit, kicked, punched, or otherwise hurt by someone within the past year? If so, by whom?: No Are you DNR?: No Advance Directives: No Advance Directives Information Provided: Yes Advance Directives on File: No Do you have a plan to hurt others: No Plan Recently lost weight without trying: No Eating poorly because of decreased appetite: No Nutrition Risks: No Nutritional Risk Patient : No Meds Allergies Allergy/AdvReac Type Severity Reaction Status Date / Time tioconazole Allergy Severe localized Verified 03/03/24 11:34 [From Monistat 1 swelling (tioconazole)] gabapentin Allergy Intermediate Blurry Verified 03/03/24 11:34 Vision Active Medications: Current Medications Acetaminophen (Acetaminophen 325 Mg Tablet) 975 mg PO Q6H [facility] Last Admin: 03/04/24 11:17 Dose: Not Given Amlodipine Besylate (Amlodipine Besylate 2.5 Mg Tablet) 2.5 mg PO DAILY [facility]; Protocol Last Admin: 03/04/24 09:00 Dose: Not Given Atorvastatin Calcium (Atorvastatin Calcium 40 Mg Tablet) 40 mg PO DAILY [facility] Last Admin: 03/04/24 09:00 Dose: Not Given Lisinopril 20 mg/ (Hydrochlorothiazide 12.5 mg) 0 mg PO DAILY [facility] Last Admin: 03/04/24 09:00 Dose: Not Given Docusate Sodium (Docusate Sodium 100 Mg Capsule) 100 mg PO BID [facility] Last Admin: 03/04/24 09:00 Dose: Not Given Hydromorphone HCl (Hydromorphone Hcl 1 Mg/Ml Syringe) 1 mg IVPUSH Q6H PRN; Protocol PRN Reason: Pain, Severe (Pain Scale 7-10) Last Admin: 03/04/24 10:35 Dose: 1 mg Sodium Chloride (Ns) 1,000 mls @ 75 mls/hr IVCONT .[id number] [facility] Last Admin: 03/03/24 23:35 Dose: 75 mls/hr Lactated Ringer's (Lr) 1,000 mls @ 80 mls/hr IVCONT .[id number] [facility] Last Admin: 03/04/24 12:38 Dose: 80 mls/hr Methocarbamol (Methocarbamol 750 Mg Tablet) 750 mg PO TID PRN PRN Reason: Muscle Spasm Last Admin: 03/03/24 19:23 Dose: 750 mg Omeprazole (Omeprazole 40 Mg Capsule.Dr) 40 mg PO DAILY@0630 [facility] Last Admin: 03/04/24 06:00 Dose: Not Given Ondansetron HCl (Ondansetron Hcl 4 Mg/2 Ml Vial) 4 mg IVPUSH Q8H PRN PRN Reason: Nausea and Vomiting Oxycodone HCl (Oxycodone Hcl Immed Release 5 Mg Tablet) 5 mg PO Q4H PRN PRN Reason: Pain, Moderate(Pain Scale 4-6) Last Admin: 03/03/24 19:23 Dose: 5 mg Oxycodone HCl (Oxycodone Hcl Immed Release 5 Mg Tablet) 10 mg PO Q4H PRN PRN Reason: Pain, Severe (Pain Scale 7-10) Last Admin: 03/03/24 21:45 Dose: 10 mg Pregabalin (Pregabalin 75 Mg Capsule) 75 mg PO BID [facility] Last Admin: 03/04/24 09:00 Dose: Not Given Venlafaxine HCl (Venlafaxine Hcl Er 150 Mg Cap.Er.24h) 150 mg PO DAILY [facility] Last Admin: 03/04/24 09:00 Dose: Not Given Venlafaxine HCl (Venlafaxine Hcl 25 Mg Tablet) 37.5 mg PO DAILY [facility] Last Admin: 03/04/24 09:00 Dose: Not Given Home Medications ?Medication ?Instructions ?Recorded ?Confirmed ?Last Taken ?Type amlodipine 2.5 mg tablet 2.5 mg PO [facility] 08/29/23 03/03/24 03/03/24 History lisinopril 20 1 tab PO [facility] 08/29/23 03/03/24 03/03/24 History mg-hydrochlorothiazide 12.5 mg tablet meloxicam 7.5 mg tablet 7.5 mg PO [facility] 08/29/23 03/03/24 03/03/24 History omeprazole 40 mg capsule,delayed 40 mg PO [facility] 08/29/23 03/03/24 03/03/24 History release tizanidine 2 mg tablet 4 mg PO BEDTIME 08/29/23 03/03/24 03/02/24 History tramadol 100 mg tablet,extended 100 mg PO BID 08/29/23 03/03/24 03/03/24 History release 24 hr venlafaxine 37.5 mg tablet 37.5 mg PO [facility] 08/29/23 03/03/24 03/03/24 History venlafaxine 150 mg 150 mg PO [facility] 01/13/24 03/03/24 03/03/24 History capsule,extended release 24 hr aspirin 81 mg tablet,delayed 81 mg PO DAILY 01/21/24 03/03/24 03/03/24 History release atorvastatin 40 mg tablet 40 mg PO DAILY 01/21/24 03/03/24 03/03/24 History Exam Height,Weight and Vital Signs: Height 5 ft 3 in Weight 93 kg Last Vital Signs Temp 98.4 F 03/04/24 12:27 Pulse 82 09/25/24 12:27 Resp 16 03/04/24 12:27 BP 145/64 H 03/04/24 12:27 Pulse Ox 94 03/04/24 12:27 O2 Del Method Room Air 03/04/24 12:27 Pertinent Lab Results Pertinent Lab Results: Laboratory Tests 03/03/24 11:42 WBC 5.4 RBC 3.80 L Hgb 12.0 Hct 34.6 L MCV 91.1 MCH 31.6 MCHC 34.7 RDW 13.1 Plt Count 290 MPV 9.3 L Immature Gran % (Auto) 0.0 Neut % (Auto) 58.9 Lymph % (Auto) 26.0 Mcpherson % (Auto) 12.2 H Eos % (Auto) 2.2 Baso % (Auto) 0.7 Lymph # (Auto) 1.4 Mcpherson # (Auto) 0.7 Eos # (Auto) 0.1 Baso # (Auto) 0.0 Abs Immat Gran (auto) 0.00 Absolute Neuts (auto) 3.2 Absolute Nucleated RBC 0.000 Nucleated RBC % (auto) 0.0 Sodium 138 Potassium 3.8 Chloride 103 Carbon Dioxide 28 Anion Gap 11 L BUN 11 Creatinine 0.70 Estim Creat Clear Calc 89.1 Estimated GFR > 60 Random Glucose 117 H Calcium 9.3 Total Bilirubin 0.4 AST 40 H ALT 53 H Alkaline Phosphatase 114 Total Protein 7.4 Albumin 4.2 Airway Mallampati Class: II (caps laterally) TM Dist: >3cm Neck ROM: Full Heart: rrr Lungs: cta Assessment and Plan Assessment Anesthesia Assessment: Anesthesia Plan Discussed and Chart Reviewed Final Anesthetic Review Family History of Problems with Anesthesia: No History of Problems with Anesthesia: No NPO: Yes ASA Class: II Final Preanesthetic Review: No Changes in Pt Med Stat, Meds/Allgs Chart Reviewed and Consent Obtained/Reviewed Patient Risk: Low Procedure Risk: Low Anesthetic Plan Anesthetic Plan: GA Disposition: Standard PACU
--- NOTE | 2024-03-04 16:58 | P.OP_ITS ---
Operative Note Operative Note Date of Service: 03/04/24 Narrative: Preoperative Diagnosis: 1) Status post L3-4 lumbar fusion; hardware failure with subsidence of cage and posterior luxation of posterior wall of the L4 vertebral body causing severe central spinal stenosis 2) bilateral leg numbness and weakness, progressive. Operation: L3-L4 Laminotomy, Partial facetectomy and foraminotomy with use of microscope Consent Informed Consent was obtained for this operation. I have explained the nature, purpose and benefits of the operation. I have discussed the risks and benefit of the operation including possible complications or adverse events with patient/family. Alternative(s) were discussed with the patient with their relative benefits and risks as well as the consequences of not accepting the operation were included in obtaining consent. Surgeon: SMOOTH GARZA MD, PHD Procedure Assisted By: YULIET Burgos Description of Procedure This 63-year-old female underwent a minimally invasive L3-4 lumbar fusion on 01/21/2024. Initially, she was doing well but then developed progressive back pain followed by bilateral leg numbness and weakness. Imaging reviewed a subsidence of the interbody cage causing posterior dislodgement of the superior part of the vertebral body causing severe spinal stenosis. Standing x-rays show no instability. The patient was offered a decompression. The procedure complications were explained. The patient was consented. The patient was brought to the operating room and endotracheally intubated. The patient was turned in prone position on the Deangelo frame. Prep and drape was done followed by timeout. The Physician surveyor instrument assistant provided access. A mid lumbar incision was made followed by release of the paravertebral muscle bilaterally to expose the L3-4 lamina and facet joints. An intraoperative x-ray was obtained to confirm the correct level. Significant oozing was present. The microscope was brought in. The original plan was to perform a bilateral decompression with sparing of the posterior tension band. However, quickly became clear that this was not the correct approach as I could not get a clear anatomy to safety proceed. Therefore I decided to convert to a midline approach. The spinous processes of L3 and L4 were partially resected with a high-speed drill in L3 and L4 laminotomy and partial facetectomy were done. The bone was of excellent quality. Finally I will reach the flavum ligament and this was hypertrophy to up to a half a cm thick. Carefully I resected the flavum ligament and eventually I was able to open flavum ligament and visualized the dura and the L4 lamina that was severely compressing the thecal sac. A 2. And 3 Kerrison were used to decompress the thecal sac over its trajectory from L3-L4. The laminotomy was extended laterally to decompress the bilateral lateral recesses. The procedure was accompanied by continuous oozing. Perhaps due to aspirin use. When an adequate decompression was obtained, the microscope was removed. Extensive hemostasis was done. The physician surveyor instrument assistant close the incision in 2 layers. Steri-Strips were used to approximate incision. An OpSite with Tegaderm was used to cover the incision. All sponge needle counts were correct. Patient was extubated and transported in stable is to recovery room. Anesthesia: General Estimated Blood Loss (ml): 500 mL Complications: None Duration of Surgery: 2 hours 30 minutes Postoperative Plan: Discharge to home
--- NOTE | 2024-03-04 17:05 | HO.NEURO.PN ---
Neurosurgery Operative Note Date of Service: 03/04/24 Narrative: POD: 0 Procedure: L3-4 Laminotomy Amaya is a pleasant 63 y/o female who is POD:0 s/p L3-4 laminotomy after severe compression of L3-4 central canal was found on CT scan imaging done yesterday in the emergency department. To recap she was evaluated by Dr. Jett and subsequently admitted to the hospital for surgery today. In the immediate post-operative window she is conversational, awake, and reporting some low back pain. She is otherwise doing well. Reports no new neurological deficits. Afebrile, vital signs stable. Patient is sensory intact. Back dressings have some staining without signs of hematoma. No active sanguineous drainage. Area is dry. Plan: 63 year old female s/p L3-4 laminotomy today. Overall doing as expected postoperatively. No new neurological deficits. Patient will remain admitted to the hospital. She will be on Q2h neuro checks until 0600 tomorrow. She has pain regimen orders in already. The hospitalist service will cover her care starting at 1900 tonight. We will be in tomorrow morning to round on the patient and evaluate her further. Miah Jett MD,PhD [facility]
[2024-03-04] MEDS: HYDROmorphone HCl 0.5 MG/0.5 ML SYRINGE IVPUSH ×2 (17:10→17:20)
[2024-03-04] MEDS: oxyCODONE HCl Immed Release 5 MG TABLET 10 MG PO ×2 (17:25→22:38)
[2024-03-04] MEDS: Acetaminophen 325 MG TABLET 975 MG PO (18:26)
[2024-03-04] MEDS: Lactated Ringers 1,000 ML 100 ML IVCONT (18:34)
[2024-03-04] MEDS: Docusate Sodium 100 MG CAPSULE PO (20:57)
[2024-03-04] MEDS: Pregabalin 75 MG CAPSULE PO (21:03)
[2024-03-05] MEDS: HYDROmorphone HCl 1 MG/ML SYRINGE IVPUSH (01:13)
[2024-03-05 04:00] VITALS: BP 127/58; PULSE 94; RESP 18; TEMP 36.4; O2SAT 94
[2024-03-05] MEDS: Lactated Ringers 1,000 ML 100 ML IVCONT (05:51)
[2024-03-05] MEDS: Acetaminophen 325 MG TABLET 975 MG PO (05:52)
[2024-03-05] MEDS: Omeprazole 40 MG CAPSULE.DR PO (05:53)
[2024-03-05] MEDS: oxyCODONE HCl Immed Release 5 MG TABLET 10 MG PO ×2 (05:54→09:54)
[2024-03-05 07:25] VITALS: BP 127/58; PULSE 94; O2SAT 94
[2024-03-05 07:39] VITALS: BP 169/77; PULSE 102; RESP 20; TEMP 37.4; O2SAT 97
[2024-03-05] MEDS: Venlafaxine HCL 25 MG TABLET 37.5 MG PO (07:58)
[2024-03-05 07:59] VITALS: BP 169/77
[2024-03-05] MEDS: amLODIPine Besylate 2.5 MG TABLET PO (07:59)
[2024-03-05] MEDS: Atorvastatin Calcium 40 MG TABLET PO (07:59)
[2024-03-05] MEDS: lisinopriL 20 MG, hydroCHLOROthiazide 12.5 MG PO (07:59)
[2024-03-05] MEDS: Venlafaxine HCl ER 150 MG CAP.ER.24H PO (08:00)
[2024-03-05] MEDS: Pregabalin 75 MG CAPSULE PO (08:00)
[2024-03-05] MEDS: Docusate Sodium 100 MG CAPSULE PO (08:00)
--- NOTE | 2024-03-05 08:01 | HO.POSTANES ---
Post Anesthesia Evaluation Post Anesthesia Evaluation Date of Service: 03/05/24 Vital Signs: Vital Signs Temp Pulse Resp BP Pulse Ox O2 Del Method 03/05/24 07:39 99.3 F 102 H 20 169/77 H 97 Room Air 03/05/24 07:25 94 127/58 L 94 03/05/24 04:00 97.5 F 94 18 127/58 L 94 Room Air 03/04/24 23:24 97.2 F 95 16 141/67 H 94 Room Air Anesthesia: General Endotracheal-GETA Mental Status: Awake Pain Control: Satisfactory Nausea/Vomiting: None Hydration: Adequate Anesthesia-Related Issues: No Anes. Related Issues
--- NOTE | 2024-03-05 08:52 | P.DS_ITS ---
DS: Providers Provider Date of Service: 03/05/24 Date of admission: 03/03/24 16:01 Primary care physician: Nicolasa Augustin NP DS: Summary Time Attestation Discharge Coordination Time (in mins): 30 Quality: Safe Use of Opioids Does Pt have an Active Cancer Diagnosis on the Problem List?: No Quality: Stroke Does the patient have a stroke diagnosis?: No Physical Exam Vital Signs: Vital Signs: Last Vital Signs Temp 99.3 F 03/05/24 07:39 Pulse 102 H 03/05/24 07:39 Resp 20 03/05/24 07:39 BP 169/77 H 03/05/24 07:59 Pulse Ox 97 03/05/24 07:39 O2 Del Method Room Air 03/05/24 07:39 O2 Flow Rate 2 03/04/24 18:28 BMI result Body Mass Index 36.3 DS: Data Data Completed and Pending Completed studies during hospitalization [Text1]: Procedures Excision of Lumbar Vertebral Disc, Open Approach (01/21/24) Fusion of Lumbar Vertebral Joint with Interbody Fusion Device, Anterior Approach, Anterior Column, Open Approach (01/21/24) Insertion of Interspinous Process Spinal Stabilization Device into Lumbar Vertebral Joint, Open Approach (01/21/24) Removal of Internal Fixation Device from Lumbosacral Joint, Open Approach (01/21/24) Discharge Plan Discharge Anticipated Discharge Date/Time: 03/05/24 08:52 Patient Disposition: Home, Self-Care Discharge Diagnosis: S/P L3-4 Laminotomy Referrals: Nicolasa Augustin NP [Primary Care Provider] - 1 Week Discharge Medications: New oxycodone 5 mg tablet 5 mg PO Q6H PRN (Reason: severe pain (scale score 7-10)) Qty: 30 0RF Rx Instructions: Partial Fill upon patient request. Continued oxycodone-acetaminophen 5-325 mg tablet 1 tab PO Q8H PRN (Reason: severe pain (scale score 7-10)) Qty: 20 0RF Rx Instructions: Partial Fill upon patient request. methocarbamol 750 mg tablet 750 mg PO BID Qty: 30 0RF venlafaxine 150 mg capsule,extended release 24hr 150 mg PO QAM atorvastatin 40 mg tablet 40 mg PO DAILY omeprazole 40 mg capsule,delayed release(DR/EC) 40 mg PO QAM amlodipine 2.5 mg tablet 2.5 mg PO QAM venlafaxine 37.5 mg tablet 37.5 mg PO QAM tizanidine 2 mg tablet 4 mg PO BEDTIME tramadol 100 mg tablet extended release 24 hr 100 mg PO BID lisinopril-hydrochlorothiazide 20-12.5 mg tablet 1 tab PO QAM pregabalin 75 mg capsule 75 mg PO BID 15 Days Qty: 30 0RF Held aspirin 81 mg tablet,delayed release (DR/EC) 81 mg PO DAILY Hold Instructions: Resume on 03/09/24. meloxicam 7.5 mg tablet 7.5 mg PO QAM Hold Instructions: Resume on 03/06/24. Discharge Orders: Discharge Order (Routine); Ordered 03/05/24 Ordered By: Miah Burroughs Diet: Advance to usual diet Activity on Discharge: As tolerated Stand Alone Forms: Patient Portal Discharge page Print Language: Vietnamese Activity Restrictions/Additional Instructions: After your spinal surgery we ask you to observe the following restrictions/guidelines: Activity: It is normal to feel some discomfort as you increase your activity, but that will improve with time. We ask you avoid heavy lifting or acitivities that cause pain. As a general rule, 8lbs is a safe limit for lifting right after surgery. Walk as much as you feel comfortable but not to exhaustion. You will feel extra tired the first few days after surgery. Stay well hydrated. It is OK to walk up and down stairs You may return to driving when you are off narcotics (such as vicodin, ox ycodone, dilaudid, etc), and you are back to normal functional capacity. If you have any concerns please check with office before driving. Return to work is specific to each patient and each surgery, so please speak with your doctor/PA at first follow up. Please bring paperwork such as FMLA at that time if you need it filled out. Medications: Please do not take your Aspirin until 5 days after surgery. Refrain from any NSAID use at least until tomorrow (examples: Ibuprofen, Meloxicam, etc.). We recommend you take 1,000mg Tylenol every 8 hours for the first few weeks after surgery, if you do not have any liver issues and can tolerate this medication. Do not exceed 4,000mg daily. We will give you a short supply of narcotics after surgery (usually one weeks wo rth). If you need more please call the office but do not use more than prescribed. You will need to give our office 48 hours notice if you need narcotics refilled and we do not fill narcotics on weekends or evenings. If you are on a narcotic, it is a good idea to take a stool softener such as colace or senna to avoid constipation If you take blood thinner such as aspirin, Plavix, Coumadin, Effient, Eliquis etc for conditions such as Afib, DVT, Pulmonary embolus, coronary disease, stents etc please speak with your surgeon about specific details as to when you can resume these medications. You can resume NSAIDs on post op day 1 (eg: Motrin, Naproxen, etc). Follow up: Please call the office, , after surgery to arrange a 3 week follow up for wound check. Wound Care: You may remove your dressing on the first day after surgery. ?You may ?leave open to air. Please do not remove the steri strips underneath. they will fall off on their own in one week. IT IS NORMAL FOR THE WOUND TO OOZE OR BE BLOODY FOR A FEW DAYS AFTER SURGERY. ?IF THIS HAPPENS JUST PLACE NEW DRESSING OVER IT TO AVOID STAINING CLOTHES. You may shower on post op day # 1 We ask that you do not let the water soak the wound. If it does get wet, just towel dry lightly. Please do not scrub your incision or place any type of chemical/ointment on the wound. No tub baths, pools or jacuzzis for one month. If you have any leaking or redness from your wound, or fevers, please call the office. Care Plan Goals: Return to normal activity as tolerated Health Concerns: None Plan of Treatment: Follow-up in clinic in 2-3 weeks Assessment: POD: 1 Procedure: L3-4 Laminotomy for decompression after subsidence Amaya was seen sitting upright in bed on this morning drinking coffee. She reports she is up walking around with assist and is otherwise doing well. She feels her symptoms are much better than pre-operatively. She still reports mild pain in her low back, but feels her leg pain has drastically improved. She reports good relief with pain medication. She is voiding well, tolerating diet. Afebrile, vital signs stable. Exam similar to pre-op. about 2/5 with left EHL, 3/5 with right EHL and bilatrer al dorsiflexion. Plantar flexion 4/5 bilaterally. Iliopsopas testing improve to 5/5. Knee extension remains 5/5. Back dressings has some staining without signs of hematoma. No active sanguineous drainage. Area is dry. Plan: Amaya is a pleasant 63 y/o F POD: 1 from L3-4 laminotomy to decompress subsidence of OLIF cage. She is doing well this morning requesting to be discharged home. She is tolerating her diet and mobilizing with PT. She feels confident she can do stairs at her home with the assistance of her . She was evalauted by the attending neurosurgeon Dr. Jett who has cleared the patient to be discharged home with PT. I will send in a short supply of Oxycodone to her pharmacy, and order home health services. Miah Jett MD,PhD [facility]
--- NOTE | 2024-03-05 09:03 | HO.NEURO.PN ---
Neurosurgery Operative Note Date of Service: 03/05/24 Narrative: POD: 1 Procedure: L3-4 Laminotomy for decompression after subsidence Amaya was seen sitting upright in bed on this morning drinking coffee. She reports she is up walking around with assist and is otherwise doing well. She feels her symptoms are much better than pre-operatively. She still reports mild pain in her low back, but feels her leg pain has drastically improved. She reports good relief with pain medication. She is voiding well, tolerating diet. Afebrile, vital signs stable. Exam similar to pre-op. about 2/5 with left EHL, 3/5 with right EHL and bilatreral dorsiflexion. Plantar flexion 4/5 bilaterally. Iliopsopas testing improve to 5/5. Knee extension remains 5/5. Back dressings has some staining without signs of hematoma. No active sanguineous drainage. Area is dry. Plan: Amaya is a pleasant 63 y/o F POD: 1 from L3-4 laminotomy to decompress subsidence of OLIF cage. She is doing well this morning requesting to be discharged home. She is tolerating her diet and mobilizing with PT. She feels confident she can do stairs at her home with the assistance of her . She was evalauted by the attending neurosurgeon Dr. Jett who has cleared the patient to be discharged home with PT. I will send in a short supply of Oxycodone to her pharmacy, and order home health services. Miah Jett MD,PhD [facility]
--- NOTE | 2024-03-05 09:04 | W.MHC.F2F ---
Service Date Service Date: 03/05/24 Encounter Date of encounter: 03/05/24 Reasons for Services Signs and symptoms assessed: S/p L3-4 laminotomy Reason for physical therapy: home safety and mobility, therapeutic exercises, gait/transfer training and ADL training Homebound: Leaving the home is medically contraindicated at this time without the asist of a device and/or another person due th the listed conditions above and below. Reason homebound: unsteady gait / fall risk, leg weakness, pain with ambulation, poor balance / fall risk and weakness related to hospital stay Certification: Based on the above findings, I certify that this patient is confined to the home and needs intermittent penitentiary care, physical therapy and/or speech therapy, or continues to need occupational therapy. The patient is under my care, and I have initiated the establishment of the plan of care. The patient will be followed by a physician who will periodically review the plan of care. Time Spent With Patient Time: Total time managing care of this patient today __15__ minutes.
--- NOTE | 2024-03-05 09:15 | MHC.CM.PN ---
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
== END 2024-03-05 10:23 | disposition home or self-care (01) | DRG 520 ==
LOC: HO.ED 16:07 → HO.EDOVER 16:16 → HO.S3 03-04 17:08
PROVIDERS: Neurological Surgery; Admitting Provider Physician Assistant; Emergency Provider Emergency Medicine; PCP Nurse Practitioner Family; Visit Provider Physician Assistant
DX: T84.296A Other mechanical complication of internal fixation device of vertebrae, initial encounter (principal); K21.9 Gastro-esophageal reflux disease without esophagitis; M48.061 Spinal stenosis, lumbar region without neurogenic claudication; Y83.8 Other surgical procedures as the cause of abnormal reaction of the patient, or of later complication, without mention of misadventure at the time of the procedure; Z87.891 Personal history of nicotine dependence; Z79.82 Long term (current) use of aspirin; Z79.899 Other long term (current) drug therapy
CPT/HCPCS: 36415; 72131; 80053; 85025; 97162; 99285; J0360; J0690; J1100; J1170; J1885; J2250; J2405; J2704; J3010; J7120

== ENCOUNTER → 2024-03-03 12:03 | Outpatient (BNV) | payer MEDICARE, SELFPAY | PROVIDERS: PCP Nurse Practitioner Family; Visit Provider Physician Assistant | DX: Z48.89 Encounter for other specified surgical aftercare (principal) | CPT/HCPCS: 63047; 99024; 99499; G0180 ==